=== PATIENT | female | born 1945 ===

== ENCOUNTER 2017-06-03 08:27 | Inpatient (IN) | payer MEDICARE, MEDICAID ==
[2017-06-03 08:47] VITALS: BMI 27.4
[2017-06-03] MEDS ORDERED: Propofol 10 mg/ml Inj (20 ML) ONE (10:13)
--- NOTE | 2017-06-03 10:14 | CP.SDSHP ---
Same Day Surgery H & P - History Proposed Procedure: EGD Pre-Op Diagnosis: SEE NOTES - Previous Medical/Surgical History Cardiac: Hypertension, ASHD/CAD Endocrine/Metabolic: Other Misc: Other Pain: 4.Moderate Pain Previous Surgical History: LARGE GASTRIC POLYP - Allergies Allergies: Allergies No Known Allergies Allergy (Verified 06/03/17 08:47) - Physical Exam General Appearance: N Vital Signs: Vital Signs 06/03/17 09:14 Temperature 97.6 F Pulse Rate 63 Respiratory 19 Rate Blood Pressure 152/89 H O2 Sat by Pulse 100 Oximetry Mental Status: Alert & Oriented x3 Neuro: WNL Heart: Other Lungs: WNL GI: Other - {Optional Preform as Required} Breast: WNL Abdomen: Other Rectal: Other Integument: WNL : WNL Ortho: WNL ENT: WNL - Impression Pt. Evaluated Today:Candidate for Anesthesia & Procedure: Yes - Date & Time Time: 10:14 Short Stay Discharge - Short Stay Discharge Admitting Diagnosis/Reason for Visit: COLON POLYP Disposition: HOME/ ROUTINE
[2017-06-03] MEDS ORDERED: Esmolol 100 mg/10ml Inj IV ONE (10:25)
[2017-06-03] MEDS ORDERED: Pantoprazole 40 mg EC Tab PO ONE (10:50)
--- NOTE | 2017-06-03 12:06 | CP.PCM.PN ---
Subjective - Date & Time of Evaluation Date of Evaluation: 06/03/17 Time of Evaluation: 12:00 - Subjective Subjective: Progress note. Service for Dr. Jean This is a 71 yo female with past medical hx of IBS, GERD, HLD, TIA, HTN presenting s/p endoscopy. Patient only speaks Croatian, is from [facility], and history was taken from pt's son who was translating. Pt reports that roughly 2 months ago she had a colonoscopy which showed an ulcer. Endoscopy was done at the same time which showed a gastric polyp. Repeat endoscopy was done today and biopsy was taken of gastric polyp. Hiatal hernia noted as well along with normal duodenum. Pt denies any current symptoms and denies procedures were done for any symptomatic reason. She denies fevers, chills, vomiting, diarrhea, chest pain, shortness of breath, melena, reflux symptoms. PMH: IBS, GERD, TIA, HTN, HLD PSH: tonsillectomy, cataracts Allergies: NKDA FH: Non contributory Home meds: lipitor, plavix, omeprazole, ramipril, bentyl, lubiprostone, cipro ( recently finished) Social hx: Former smoker. Quit 4 yrs ago. Smoked for over 50 years. Social drinker. Lives with son, daughter and sister in [place]. Born in [place] Objective - Vital Signs/Intake and Output Vital Signs (last 24 hours): Temp Pulse Resp BP Pulse Ox 97.3 F L 52 L 9 L 150/70 100 06/03/17 11:05 06/03/17 11:05 06/03/17 11:05 06/03/17 11:05 06/03/17 11:05 Intake and Output: 06/03/17 06/03/17 06:59 18:59 Intake Total 200 Balance 200 - Medications Medications: Current Medications Dicyclomine HCl (Bentyl) 20 mg PO BID PRN PRN Reason: Irritable bowel symptoms Home Med (Atorvastatin [Lipitor]) 20 mg PO DAILY [facility] Home Med (Omeprazole [Omeprazole]) 40 mg PO DAILY [facility] Home Med (Ramipril [Altace]) 5 mg PO DAILY [facility] - Constitutional Appears: Non-toxic, No Acute Distress - Head Exam Head Exam: ATRAUMATIC, NORMAL INSPECTION, NORMOCEPHALIC - Eye Exam Eye Exam: EOMI - ENT Exam ENT Exam: Mucous Membranes Moist - Neck Exam Neck Exam: Full ROM, Normal Inspection - Respiratory Exam Respiratory Exam: NORMAL BREATHING PATTERN. absent: Respiratory Distress - Cardiovascular Exam Cardiovascular Exam: +S1, +S2 - GI/Abdominal Exam GI & Abdominal Exam: Soft, Normal Bowel Sounds. absent: Tenderness - Extremities Exam Extremities Exam: Full ROM, Normal Inspection - Neurological Exam Neurological Exam: Alert, Awake, Oriented x3 - Psychiatric Exam Psychiatric exam: Normal Affect, Normal Mood - Skin Skin Exam: Dry, Intact, Normal Color, Warm Assessment and Plan - Assessment and Plan (Free Text) Assessment: This is a 71 yo female with pmh of IBS, HTN, HLD, GERD presenting s/p endosocopy 1. Gastric polyp -GI consulted. recs appreciated -s/p endoscopy -full liquid diet for lunch. advance as tolerated. -biopsy pending -pt will need repeat endo in 10 wks -will order ct scan of abdomen to evaluate for obstruction 2. Hiatal hernia -sx consult. recs appreciated. 3. Hx of HLD -will resume home lipitor 4. hx of HTN -will resume home ramipril 5. Hx of GERD -will resume home omeprazole 6. hx of TIA -will hold home plavix for now 7. hx of IBS -will resume home bentyl as needed 8. GI/DVT ppx -omeprazole daily -SCDs discussed with Dr. Jean
[2017-06-03] MEDS ORDERED: Pneumococcal 23-Valent Vaccine IM ONE (14:24)
[2017-06-03] MEDS ORDERED: Pantoprazole 40 mg EC Tab PO SCH (15:19)
--- NOTE | 2017-06-03 15:51 | CP.PCM.CON ---
History of Present Illness - History of Present Illness History of Present Illness: : 71 yo F who is being seen now s/p endoscopy with Dr. Grey. Pt states she got a colonoscopy in 2016, after which she was directed to get an EGD. Today during EGD pt was found to have a gastric polyp and surgery was consulted for this. Currently pt is asymptomatic. She denies any n/v, fatigue, change in appetite, weight-loss, cp/palpitation/sob fever/chills, hematochezia, headache, weakness, numbness or tingling. Pt denies abdominal pain, pain at night, pain before/after eating. PMHx: hyperlipidemia, HTN, TIA, GERD, IBS, hiatal hernia PShx: shoulder, tonsilectomy, glaucoma. Medication: lipitor, plavix (Held since 05/29), omeprazole, ramipril, bentyl, lubiprostone NKDA Social: lives with her brother in the [place]. Is visiting son/ daughter on vacation in -planned on leaving end of Apr. Tobacco: quit 4 yrs ago. 50 yrs x 1ppd. Alcohol: "light social drinker." 2 beers every 2 weeks. Recreational drugs: denies. Review of Systems - Constitutional Constitutional: Weight Gain. absent: Anorexia, Chills, Daytime Sleepiness, Fatigue, Fever, Headache, Lethargy, Night Sweats, Weight Loss, Weakness - Cardiovascular Cardiovascular: absent: Chest Pain, Dyspnea, Palpitations - Respiratory Respiratory: absent: Dyspnea - Gastrointestinal Gastrointestinal: absent: Abdominal Pain, Change in Bowel Habits, Change in Stool Character, Constipation, Diarrhea, Hematochezia, Melena - Musculoskeletal Musculoskeletal: absent: Myalgias, Numbness, Tingling - Neurological Neurological: absent: Numbness, Tingling Past Patient History - Past Medical History & Family History Past Medical History?: Yes - Past Social History Smoking Status: Former Smoker Alcohol: Social Home Situation {Lives}: With Family - CARDIAC Hx Cardiac Disorders: Yes Hx Heart Attack: Yes Hx Hypercholesterolemia: Yes Hx Hypertension: Yes Other/Comment: SON STATES PT HAD MILD STROKES OF HEART. LAST OCCURRANCE 3-4 YEARS AGO - PULMONARY Hx Respiratory Disorders: No - NEUROLOGICAL Hx Neurological Disorder: Yes Hx Transient Ischemic Attacks (TIA): Yes - HEENT Hx HEENT Problems: Yes Hx Cataracts: Yes (BIOL) - RENAL Hx Chronic Kidney Disease: No - ENDOCRINE/METABOLIC Hx Endocrine Disorders: No - HEMATOLOGICAL/ONCOLOGICAL Hx Blood Disorders: No - INTEGUMENTARY Hx Dermatological Problems: No - MUSCULOSKELETAL/RHEUMATOLOGICAL Hx Falls: No - GASTROINTESTINAL Hx Gastrointestinal Disorders: Yes Hx Gastroesophageal Reflux: Yes Hx Irritable Bowel: Yes Other/Comment: gastric ulcer - GENITOURINARY/GYNECOLOGICAL Hx Genitourinary Disorders: No - PSYCHIATRIC Hx Psychophysiologic Disorder: No Hx Substance Use: No - SURGICAL HISTORY Hx Surgeries: Yes Hx Cataract Extraction: Yes (BIOL) Hx Musculoskeletal Surgery: Yes (RIGHT SHOULDER) Hx Tonsillectomy: Yes - ANESTHESIA Hx Anesthesia: Yes Hx Anesthesia Reactions: No Hx Malignant Hyperthermia: No Has any member of the family had a problem w/ anesthesia?: No Meds Allergies/Adverse Reactions: Allergies Allergy/AdvReac Type Severity Reaction Status Date / Time No Known Allergies Allergy Verified 06/03/17 08:47 - Medications Medications: Current Medications Dicyclomine HCl (Bentyl) 20 mg PO BID PRN PRN Reason: Irritable bowel symptoms Enalapril Maleate (Vasotec) 10 mg PO DAILY [facility] Pantoprazole Sodium (Protonix Ec Tab) 40 mg PO DAILY [facility] Rosuvastatin Calcium (Crestor) 10 mg PO HS [facility] Physical Exam - Constitutional Appears: No Acute Distress - Head Exam Head Exam: ATRAUMATIC, NORMAL INSPECTION, NORMOCEPHALIC - Eye Exam Eye Exam: absent: EOMI Additional comments: sp CVA - Respiratory Exam Respiratory Exam: NORMAL BREATHING PATTERN. absent: Respiratory Distress - GI/Abdominal Exam GI & Abdominal Exam: Hernia. absent: Distended, Firm, Guarding, Rebound, Rigid , Tenderness Additional comments: Reducible umbilical hernia - Extremities Exam Extremities exam: Positive for: pedal edema. Negative for: calf tenderness Additional comments: +1 pitting edema b/l - Neurological Exam Neurological exam: Alert, Oriented x3 - Psychiatric Exam Psychiatric exam: Normal Affect, Normal Mood - Skin Skin Exam: Dry, Intact Results - Vital Signs Recent Vital Signs: Last Vital Signs Temp 98.3 F 06/03/17 13:45 Pulse 56 L 06/03/17 13:45 Resp 20 06/03/17 14:32 BP 170/71 H 06/03/17 13:45 Pulse Ox 100 06/03/17 13:45 Assessment & Plan - Assessment and Plan (Free Text) Assessment: 71yo F w/ 2cm gastric polyp on the greater curvature, s/p EGD -Plan for partial gastrectomy Monday 06/04 -NPO@midnight -Medical optimization pre-op -Continue to hold plavix -IVF -OR in AM DW Dr Albina Kramer PGY3
[2017-06-03 16:52] LABS: BASO % 0.9 % (0.0-2.0); EOS # 0.1 K/uL (0.0-0.7); EOS % 1.8 % (0.0-4.0); HEMATOCRIT 32.2 % (34.0-47.0); LYMPH # 2.2 K/uL (1.0-4.3); MEAN CELL VOLUME 85.8 fL (81.0-99.0); MEAN CORPUSCULAR HEMOGLOBIN 28.1 pg (27.0-31.0); MEAN CORPUSCULAR HGB CONC 32.7 g/dL (33.0-37.0); MEAN PLATELET VOLUME 8.9 fL (7.2-11.7); MONO # 0.5 K/uL (0.0-0.8); MONO % 8.6 % (0.0-10.0); RED CELL DISTRIBUTION WIDTH 14.4 % (11.5-14.5); WHITE BLOOD COUNT 5.2 K/uL (4.8-10.8)
[2017-06-03 17:04] LABS: ALB/GLOB RATIO 1.1 (1.0-2.1); ALKALINE PHOSPHATASE 102 U/L (38-126); ALT/SGPT 23 U/L (9-52); AST/SGOT 17 U/L (14-36); BILIRUBIN,TOTAL 0.3 mg/dL (0.2-1.3); BLOOD UREA NITROGEN 9 mg/dL (7-17); CALCIUM 9.1 mg/dl (8.6-10.4); CARBON DIOXIDE 26 mmol/L (22-30); CHLORIDE 105 mmol/L (98-107); CHOLESTEROL 120 mg/dL (0-199); GFR AFRICAN-AMERICAN > 60; GLUCOSE,RANDOM 102 mg/dL (65-105); PHOSPHOROUS 2.9 mg/dL (2.5-4.5); POTASSIUM 3.3 mmol/L (3.6-5.2); SODIUM 139 mmol/L (132-148); TOTAL PROTEIN 6.3 g/dL (6.3-8.3)
[2017-06-03] MEDS ORDERED: Iohexol 240 (50 ml) PO ONE (17:15)
[2017-06-03] MEDS ORDERED: Magnesium Citrate Oral SOL (300 ml) PO STA (20:48)
[2017-06-03] MEDS: Lactated Ringer's 1,000 ML IV SCH (21:20)
--- NOTE | 2017-06-03 22:02 | CT ---
EXAM: CT Abdomen and Pelvis Without Intravenous Contrast EXAM DATE/TIME: 06/03/2017 11:30 AM CLINICAL HISTORY: 71 years old, female; Condition or disease; Stomach condition; Gastritis; Additional info: Eval gastric polyp/obstruction TECHNIQUE: Axial computed tomography images of the abdomen and pelvis without intravenous contrast. All CT scans at this facility use one or more dose reduction techniques, viz.: automated exposure control; ma/kV adjustment per patient size (including targeted exams where dose is matched to indication; i.e. head); or iterative reconstruction technique. Coronal and sagittal reformatted images were created and reviewed. COMPARISON: There are no prior studies for comparison. FINDINGS: Artifacts: Motion artifact degrades image quality. Lower thorax: The heart is mildly enlarged. There are right hilar calcifications. There is atelectasis and scarring at the lung bases. There is a small hiatal hernia ABDOMEN: Liver: unremarkable Gallbladder and bile ducts: unremarkable Pancreas: Pancreas is mildly atrophic Spleen: unremarkable Adrenals: unremarkable Kidneys and ureters: unremarkable Stomach and bowel: Stomach is incompletely distended which accentuates the gastric wall. There is an apparent. Thickening in the region of the antrum. Rotation is normal. There is contrast in much of the small bowel. There is no obstruction. Terminal ileum is unremarkable. Appendix is unremarkable. Colon is incompletely distended which limits evaluation. Appendix: See stomach and bowel PELVIS: Bladder: unremarkable Reproductive: There are uterine calcifications. Adnexa are unremarkable. ABDOMEN and PELVIS: Intraperitoneal space: There is no free air.There is no free fluid. Bones/joints: There are degenerative changes in the osseus structures. Soft tissues: There is a fat-containing umbilical hernia. Vasculature: There are vascular calcifications. There are phleboliths. Lymph nodes: There is no pathologic adenopathy. IMPRESSION: No acute solid visceral abnormality; limited evaluation of the stomach due to under distention, no bowel obstruction Additional findings as described above.
[2017-06-04] MEDS: Lactated Ringer's 1,000 ML IV SCH ×4 (02:18→22:00)
[2017-06-04 07:24] LABS: BASO % 0.9 % (0.0-2.0); EOS # 0.1 K/uL (0.0-0.7); EOS % 1.9 % (0.0-4.0); HEMATOCRIT 33.3 % (34.0-47.0); LYMPH # 2.4 K/uL (1.0-4.3); LYMPH % 43.6 % (20.0-40.0); MEAN CELL VOLUME 85.8 fL (81.0-99.0); MEAN CORPUSCULAR HEMOGLOBIN 28.1 pg (27.0-31.0); MEAN CORPUSCULAR HGB CONC 32.8 g/dL (33.0-37.0); MONO # 0.5 K/uL (0.0-0.8); MONO % 8.6 % (0.0-10.0); RED CELL DISTRIBUTION WIDTH 14.7 % (11.5-14.5); WHITE BLOOD COUNT 5.5 K/uL (4.8-10.8)
[2017-06-04 07:29] LABS: INR 1.1
[2017-06-04 08:00] LABS: CHLORIDE 108 mmol/L (98-107); POTASSIUM 3.9 mmol/L (3.6-5.2); SODIUM 143 mmol/L (132-148)
[2017-06-04 08:02] LABS: ALB/GLOB RATIO 1.1 (1.0-2.1); AST/SGOT 19 U/L (14-36); BILIRUBIN,TOTAL 0.5 mg/dL (0.2-1.3); CARBON DIOXIDE 25 mmol/L (22-30); GFR AFRICAN-AMERICAN > 60
[2017-06-04 08:03] LABS: ALKALINE PHOSPHATASE 125 U/L (38-126); ALT/SGPT 23 U/L (9-52); BLOOD UREA NITROGEN 8 mg/dL (7-17); CALCIUM 9.1 mg/dl (8.6-10.4); GLUCOSE,RANDOM 97 mg/dL (65-105)
[2017-06-04] MEDS ORDERED: ceFAZolin IV 2 gm in Dextrose 1 GM/50 ML BAG IVPB ONE (09:40)
[2017-06-04] MEDS ORDERED: metroNIDAZOLE IV 500 mg/100 ml 500 MG/100 ML BAG ONE (09:40)
[2017-06-04] MEDS ORDERED: Pantoprazole 40 mg EC Tab PO SCH (10:00)
--- NOTE | 2017-06-04 11:22 | CP.PCM.PN ---
Subjective - Date & Time of Evaluation Date of Evaluation: 06/04/17 Time of Evaluation: 11:20 - Subjective Subjective: PROGRESS NOTE Service for Dr. Jean Pt seen and examined. No acute distress. No events overnight. Pt has no complaints. No fevers, chills, vomiting, diarrhea, cp, sob. Pt scheduled for partial gastrectomy today. Objective - Vital Signs/Intake and Output Vital Signs (last 24 hours): Temp Pulse Resp BP Pulse Ox 98.3 F 62 20 147/85 99 06/04/17 08:02 06/04/17 08:02 06/04/17 08:02 06/04/17 08:02 06/04/17 08:02 Intake and Output: 06/04/17 06/04/17 06:59 18:59 Intake Total 2200 Output Total 600 Balance 1600 - Medications Medications: Current Medications Dicyclomine HCl (Bentyl) 20 mg PO BID PRN PRN Reason: Irritable bowel symptoms Enalapril Maleate (Vasotec) 10 mg PO DAILY [facility] Lactated Ringer's (Lactated Ringer's) 1,000 mls @ 100 mls/hr IV .Q10H [facility] Last Admin: 06/04/17 05:22 Dose: 100 mls/hr Pantoprazole Sodium (Protonix Ec Tab) 40 mg PO DAILY [facility] Rosuvastatin Calcium (Crestor) 10 mg PO HS [facility] Last Admin: 06/03/17 21:20 Dose: 10 mg - Labs Labs: 06/04/17 07:15 06/04/17 07:15 PT 12.5 SECONDS (9.7-12.2) H 06/04/17 07:15 INR 1.1 06/04/17 07:15 APTT 33 SECONDS (21-34) 06/04/17 07:15 - Constitutional Appears: Non-toxic, No Acute Distress - Head Exam Head Exam: ATRAUMATIC, NORMAL INSPECTION, NORMOCEPHALIC - Eye Exam Eye Exam: EOMI - ENT Exam ENT Exam: Mucous Membranes Moist - Neck Exam Neck Exam: Full ROM, Normal Inspection - Respiratory Exam Respiratory Exam: NORMAL BREATHING PATTERN. absent: Respiratory Distress - Cardiovascular Exam Cardiovascular Exam: +S1, +S2 - GI/Abdominal Exam GI & Abdominal Exam: Soft, Normal Bowel Sounds. absent: Tenderness - Extremities Exam Extremities Exam: Full ROM, Normal Inspection - Back Exam Back Exam: NORMAL INSPECTION - Neurological Exam Neurological Exam: Alert, Awake, Oriented x3 - Psychiatric Exam Psychiatric exam: Normal Affect, Normal Mood - Skin Skin Exam: Dry, Intact, Normal Color, Warm Assessment and Plan - Assessment and Plan (Free Text) Assessment: This is a 71 yo female with pmh of IBS, HTN, HLD, GERD presenting s/p endosocopy 1. Gastric polyp -GI consulted. recs appreciated -s/p endoscopy -pt NPO for sx -biopsy pending -pt will need repeat endo in 10 wks -pt to undergo partial gastrectomy today with Dr. Montemayor. 2. Hiatal hernia -sx consult. recs appreciated. 3. Hx of HLD -will resume home lipitor 4. hx of HTN -will resume home ramipril 5. Hx of GERD -will resume home omeprazole 6. hx of TIA -will hold home plavix for now 7. hx of IBS -will resume home bentyl as needed 8. GI/DVT ppx -omeprazole daily -SCDs discussed with Dr. Jean
[2017-06-04] MEDS ORDERED: Lactated Ringer's 1,000 ML IV ONE ×4 (12:45→15:45)
[2017-06-04] MEDS ORDERED: Atropine 0.4 mg/ml Inj (1 mL) ONE (12:47)
[2017-06-04] MEDS ORDERED: Phenylephrine 10 mg/ml Inj ONE (12:47)
[2017-06-04] MEDS ORDERED: ePHEDrine 50 mg/ml Inj ONE (12:47)
[2017-06-04] MEDS ORDERED: Propofol 10 mg/ml Inj (20 ML) ONE (12:47)
[2017-06-04] MEDS ORDERED: Midazolam 2 MG/2 ML VIAL ONE (12:47)
[2017-06-04] MEDS ORDERED: Rocuronium 10 mg/ml (5 ml) ONE (12:47)
[2017-06-04] MEDS ORDERED: Succinylcholine Chloride 20 mg/ml Syr (5 ml) IV ONE (12:47)
[2017-06-04] MEDS ORDERED: Esmolol 100 mg/10ml Inj IV ONE (13:23)
[2017-06-04] MEDS ORDERED: Labetalol 25mg/5ml Syringe ONE (13:44)
[2017-06-04] MEDS ORDERED: Sodium Chloride 0.9% 500 ML IV ONE (13:45)
[2017-06-04] MEDS ORDERED: Neostigmine Methylsulfate 3mg/3ml Syringe IV ONE (14:28)
[2017-06-04] MEDS ORDERED: Morphine 4 MG/ML VIAL ONE (14:31)
--- NOTE | 2017-06-04 15:19 | PCM.SURG1 ---
Surgeon's Initial Post Op Note - Surgeon's Notes Surgeon: Dr. Montemayor Filler Shaker: [place] PGY3, Quintin PGY2 Type of Anesthesia: General Endo Pre-Operative Diagnosis: Gastric polyp Operative Findings: 1x1cm gastric polyp Post-Operative Diagnosis: gastric polyp Operation Performed: partial gastrectomy, gastrojejunostomy , jejunojejunostomy Specimen/Specimens Removed: distal stomach Estimated Blood Loss: EBL {In ML}: 50 Blood Products Given: N/A Drains Used: Matias Post-Op Condition: Fair Date of Surgery/Procedure: 06/04/17 Time of Surgery/Procedure: 15:19
[2017-06-04] MEDS: HYDROmorphone 0.5 mg/0.5 ml ISec IVP PRN ×3 (17:16→23:46)
--- NOTE | 2017-06-04 17:23 | CP.PCM.CON ---
<Eduardo Mike - Last Filed: 06/04/17 17:33> History of Present Illness - History of Present Illness History of Present Illness: 71 yo F who is being seen now s/p endoscopy with Dr. Grey. Pt states she got a colonoscopy in 2016, after which she was directed to get an EGD. Today during EGD pt was found to have a gastric polyp and surgery was consulted for this. Currently pt is asymptomatic. She denies any n/v, fatigue, change in appetite, weight-loss, cp/palpitation/sob fever/chills, hematochezia, headache, weakness, numbness or tingling. Pt denies abdominal pain, pain at night, pain before/after eating. PMHx: hyperlipidemia, HTN, TIA, GERD, IBS, hiatal hernia PShx: shoulder, tonsilectomy, glaucoma. Medication: lipitor, plavix (Held since 05/29), omeprazole, ramipril, bentyl, lubiprostone Allergies: NKDA Social: lives with her brother in the [place]. Is visiting son/ daughter on vacation in -planned on leaving end of Apr. Tobacco: quit 4 yrs ago. 50 yrs x 1ppd. Alcohol: "light social drinker." 2 beers every 2 weeks. Recreational drugs: denies. Review of Systems - Constitutional Constitutional: Weight Gain. absent: Chills, Fever - Cardiovascular Cardiovascular: absent: Chest Pain - Respiratory Respiratory: absent: Cough, Dyspnea, Hemoptysis - Gastrointestinal Gastrointestinal: absent: Abdominal Pain, Constipation, Diarrhea - Genitourinary Genitourinary: absent: Dysuria Past Patient History - Past Medical History & Family History Past Medical History?: Yes - Past Social History Smoking Status: Former Smoker Alcohol: Social Home Situation {Lives}: With Family - CARDIAC Hx Cardiac Disorders: Yes Hx Heart Attack: Yes Hx Hypercholesterolemia: Yes Hx Hypertension: Yes Other/Comment: SON STATES PT HAD MILD STROKES OF HEART. LAST OCCURRANCE 3-4 YEARS AGO - PULMONARY Hx Respiratory Disorders: No - NEUROLOGICAL Hx Neurological Disorder: Yes Hx Transient Ischemic Attacks (TIA): Yes - HEENT Hx HEENT Problems: Yes Hx Cataracts: Yes (BIOL) - RENAL Hx Chronic Kidney Disease: No - ENDOCRINE/METABOLIC Hx Endocrine Disorders: No - HEMATOLOGICAL/ONCOLOGICAL Hx Blood Disorders: No - INTEGUMENTARY Hx Dermatological Problems: No - MUSCULOSKELETAL/RHEUMATOLOGICAL Hx Falls: No - GASTROINTESTINAL Hx Gastrointestinal Disorders: Yes Hx Gastroesophageal Reflux: Yes Hx Irritable Bowel: Yes Other/Comment: gastric ulcer - GENITOURINARY/GYNECOLOGICAL Hx Genitourinary Disorders: No - PSYCHIATRIC Hx Psychophysiologic Disorder: No Hx Substance Use: No - SURGICAL HISTORY Hx Surgeries: Yes Hx Cataract Extraction: Yes (BIOL) Hx Musculoskeletal Surgery: Yes (RIGHT SHOULDER) Hx Tonsillectomy: Yes - ANESTHESIA Hx Anesthesia: Yes Hx Anesthesia Reactions: No Hx Malignant Hyperthermia: No Has any member of the family had a problem w/ anesthesia?: No Meds Allergies/Adverse Reactions: Allergies Allergy/AdvReac Type Severity Reaction Status Date / Time No Known Allergies Allergy Verified 06/03/17 08:47 - Medications Medications: Current Medications Dicyclomine HCl (Bentyl) 20 mg PO BID PRN PRN Reason: Irritable bowel symptoms Enalapril Maleate (Vasotec) 10 mg PO DAILY [facility] Heparin Sodium (Porcine) (Heparin) 5,000 units SC Q12 [facility] Hydromorphone HCl (Dilaudid) 0.5 mg IVP Q3H PRN PRN Reason: Pain, moderate (4-7) Last Admin: 06/04/17 17:16 Dose: 0.5 mg Lactated Ringer's (Lactated Ringer's) 1,000 mls @ 100 mls/hr IV .Q10H [facility] Last Admin: 06/04/17 05:22 Dose: 100 mls/hr Cefazolin Sodium 1,000 mg/ (Sodium Chloride) 100 mls @ 100 mls/hr IVPB Q8H [facility] Stop: 06/06/17 18:01 Metronidazole (Flagyl) 500 mg in 100 mls @ 100 mls/hr IVPB Q8 [facility] Stop: 06/06/17 22:01 Morphine Sulfate (Morphine) 1 mg IVP Q10M PRN PRN Reason: Pain, severe (8-10) Stop: 06/04/17 17:28 Last Admin: 06/04/17 16:06 Dose: 1 mg Pantoprazole Sodium (Protonix Ec Tab) 40 mg PO DAILY [facility] Pantoprazole Sodium (Protonix Inj) 40 mg IVP DAILY [facility] Rosuvastatin Calcium (Crestor) 10 mg PO HS [facility] Last Admin: 06/03/17 21:20 Dose: 10 mg Physical Exam - Head Exam Head Exam: ATRAUMATIC, NORMAL INSPECTION, NORMOCEPHALIC - Eye Exam Eye Exam: absent: EOMI Additional comments: s/p CVA - ENT Exam ENT Exam: Mucous Membranes Moist - Neck Exam Neck exam: Positive for: Normal Inspection - Respiratory Exam Respiratory Exam: Clear to Auscultation Bilateral. absent: Rales, Rhonchi, Wheezes - Cardiovascular Exam Cardiovascular Exam: REGULAR RHYTHM, +S1, +S2. absent: Systolic Murmur - GI/Abdominal Exam GI & Abdominal Exam: Hernia, Normal Bowel Sounds, Soft Additional comments: Reducible umbilical hernia - Rectal Exam Rectal Exam: Deferred - Extremities Exam Extremities exam: Positive for: pedal edema. Negative for: calf tenderness Additional comments: +1 pitting edema b/l - Neurological Exam Neurological exam: Alert, Oriented x3 - Psychiatric Exam Psychiatric exam: Normal Affect, Normal Mood - Skin Skin Exam: Dry, Intact, Normal Color, Warm Results - Vital Signs Recent Vital Signs: Last Vital Signs Temp 97.7 F 06/04/17 16:30 Pulse 64 06/04/17 17:00 Resp 13 06/04/17 17:00 BP 93/56 L 06/04/17 16:40 Pulse Ox 100 06/04/17 17:00 - Labs Result Diagrams: 06/04/17 07:15 06/04/17 07:15 Labs: Laboratory Results - last 24 hr 06/04/17 06/04/17 06/04/17 07:15 07:15 07:15 WBC 5.5 RBC 3.88 Hgb 10.9 L Hct 33.3 L MCV 85.8 MCH 28.1 MCHC 32.8 L RDW 14.7 H Plt Count 315 MPV 9.0 Neut % (Auto) 45.0 L Lymph % (Auto) 43.6 H [place] % (Auto) 8.6 Eos % (Auto) 1.9 Baso % (Auto) 0.9 Neut # 2.5 Lymph # 2.4 [place] # 0.5 Eos # 0.1 Baso # 0.0 PT 12.5 H INR 1.1 APTT 33 Sodium 143 Potassium 3.9 Chloride 108 H Carbon Dioxide 25 Anion Gap 14 BUN 8 Creatinine 0.8 Est GFR ( Amer) > 60 Est GFR (Non-Af Amer) > 60 Random Glucose 97 Calcium 9.1 Total Bilirubin 0.5 AST 19 ALT 23 Alkaline Phosphatase 125 Total Protein 7.0 Albumin 3.6 Globulin 3.4 Albumin/Globulin Ratio 1.1 Blood Type Antibody Screen 06/04/17 07:15 WBC RBC Hgb Hct MCV MCH MCHC RDW Plt Count MPV Neut % (Auto) Lymph % (Auto) [place] % (Auto) Eos % (Auto) Baso % (Auto) Neut # Lymph # [place] # Eos # Baso # PT INR APTT Sodium Potassium Chloride Carbon Dioxide Anion Gap BUN Creatinine Est GFR ( Amer) Est GFR (Non-Af Amer) Random Glucose Calcium Total Bilirubin AST ALT Alkaline Phosphatase Total Protein Albumin Globulin Albumin/Globulin Ratio Blood Type O POSITIVE Antibody Screen Negative Assessment & Plan - Assessment and Plan (Free Text) Assessment: 71 yo F with PMHx of s/p partial gastrectomy now in ICU for monitoring. GI: s/p partial gastrectomy - dilaudid 0.5mg ivp q3 prn for pain - continue cefazolin and metronidazole - lactated ringers 100 cc/hr CV: hypotensive - hold home med enalapril - lactated ringers 100 cc/hr Prophylaxis: - DVT: heparin 5000u sc q12, SCDs - GI: protonix 40mg iv daily - advance diet as tolerated Other organ systems with no active disease <Tom Baumann - Last Filed: 06/04/17 18:54> Meds - Medications Medications: Current Medications Dicyclomine HCl (Bentyl) 20 mg PO BID PRN PRN Reason: Irritable bowel symptoms Heparin Sodium (Porcine) (Heparin) 5,000 units SC Q12 [facility] Hydromorphone HCl (Dilaudid) 0.5 mg IVP Q3H PRN PRN Reason: Pain, moderate (4-7) Last Admin: 06/04/17 17:16 Dose: 0.5 mg Lactated Ringer's (Lactated Ringer's) 1,000 mls @ 100 mls/hr IV .Q10H [facility] Last Admin: 06/04/17 18:17 Dose: Not Given Cefazolin Sodium 1,000 mg/ (Sodium Chloride) 100 mls @ 100 mls/hr IVPB Q8H [facility] Stop: 06/06/17 18:01 Metronidazole (Flagyl) 500 mg in 100 mls @ 100 mls/hr IVPB Q8 [facility] Stop: 06/06/17 22:01 Sodium Chloride (Sodium Chloride 0.9%) 1,000 mls @ 1,000 mls/hr IV .Q1H [facility] Stop: 06/04/17 19:13 Last Admin: 06/04/17 18:23 Dose: 1,000 mls/hr Pantoprazole Sodium (Protonix Inj) 40 mg IVP DAILY [facility] Rosuvastatin Calcium (Crestor) 10 mg PO HS [facility] Last Admin: 06/03/17 21:20 Dose: 10 mg Results - Vital Signs Recent Vital Signs: Last Vital Signs Temp 97.7 F 06/04/17 17:00 Pulse 62 06/04/17 18:20 Resp 12 06/04/17 18:20 BP 100/61 06/04/17 17:36 Pulse Ox 100 06/04/17 18:20 - Labs Result Diagrams: 06/04/17 07:15 06/04/17 07:15 Labs: Laboratory Results - last 24 hr 06/04/17 06/04/17 06/04/17 07:15 07:15 07:15 WBC 5.5 RBC 3.88 Hgb 10.9 L Hct 33.3 L MCV 85.8 MCH 28.1 MCHC 32.8 L RDW 14.7 H Plt Count 315 MPV 9.0 Neut % (Auto) 45.0 L Lymph % (Auto) 43.6 H [place] % (Auto) 8.6 Eos % (Auto) 1.9 Baso % (Auto) 0.9 Neut # 2.5 Lymph # 2.4 [place] # 0.5 Eos # 0.1 Baso # 0.0 PT 12.5 H INR 1.1 APTT 33 Sodium 143 Potassium 3.9 Chloride 108 H Carbon Dioxide 25 Anion Gap 14 BUN 8 Creatinine 0.8 Est GFR ( Amer) > 60 Est GFR (Non-Af Amer) > 60 Random Glucose 97 Calcium 9.1 Total Bilirubin 0.5 AST 19 ALT 23 Alkaline Phosphatase 125 Total Protein 7.0 Albumin 3.6 Globulin 3.4 Albumin/Globulin Ratio 1.1 Blood Type Antibody Screen 06/04/17 07:15 WBC RBC Hgb Hct MCV MCH MCHC RDW Plt Count MPV Neut % (Auto) Lymph % (Auto) [place] % (Auto) Eos % (Auto) Baso % (Auto) Neut # Lymph # [place] # Eos # Baso # PT INR APTT Sodium Potassium Chloride Carbon Dioxide Anion Gap BUN Creatinine Est GFR ( Amer) Est GFR (Non-Af Amer) Random Glucose Calcium Total Bilirubin AST ALT Alkaline Phosphatase Total Protein Albumin Globulin Albumin/Globulin Ratio Blood Type O POSITIVE Antibody Screen Negative Attending/Attestation - Attestation I have personally seen and examined this patient.: Yes I have fully participated in the care of the patient.: Yes I have reviewed all pertinent clinical information: Yes Notes (Text): 06/04/17 18:54 Patient seen and examined 71 yo F s/p partial gastrectomy ICU monitoring overnight Monitor intake and output IV fluids Pain medication as needed Follow-up lites and CBC
[2017-06-04] MEDS ORDERED: Sodium Chloride 0.9% 1,000 ML IV ONE (18:14)
--- NOTE | 2017-06-04 20:30 | PN ---
DATE: LOCATION: ICU. SUBJECTIVE: This is a 71-year-old female, post surgical removal of gastric polyp done today by Dr. Montemayor and post upper endoscopy done yesterday by myself, seen in the intensive care unit in the presence of her family member as well as the staff in the floor. The entire chart is reviewed including but not limited to the most recent lab and radiology study results, current and the previous medication list, current and the previous medical events. Today labs showed hemoglobin of 10.9, hematocrit 33.3, with normal platelet count, mildly elevated PT to 12.5 with normal the rest of the SMA-18. PHYSICAL EXAMINATION: GENERAL: A 71-year-old female. VITAL SIGNS: Afebrile with pulse of 68, respiratory rate 20 to 22 with blood pressure 96/54. HEENT: Showed pale dry oral mucous membranes. Nonicteric sclerae. NG tube is in place. LUNGS: Few scattered mild crepitation, decreased air entry at bases bilaterally. HEART: Positive S1 and S2. ABDOMEN: Clean dressing post surgically. Bowel sounds are negative for now. No mass or organomegaly. EXTREMITIES: No significant edema, clubbing or cyanosis. NEUROLOGIC: No reported neurological deficits, sensory or motor. LABORATORY DATA: Tests to be mentioned, the patient had abdominal and the pelvic CAT scan post my upper endoscopy. Report is seen. Case discussed with Dr. Montemayor at length before and after the procedure. The patient is post partial gastrectomy with gastrojejunostomy as per the official report. Pathology report is still pending. IMPRESSION: 1. Gastric polypoid mass lesion. 2. Anemia, most likely secondary to above. 3. Known history of hypertension, hyperlipidemia, transient ischemic attack with irritable bowel syndrome and status post tonsillectomy by history. SUGGESTION: 1. Agree with your plan. 2. Peripheral hyperalimentation. 3. Proton pump inhibitor. 4. IV antibiotics. 5. Further recommendations to follow. 6. Followup on pathology report is recommended. Thank you for letting me participate in your patient's case management. Yamini Batres MD cc: Yamini Batres MD
[2017-06-04] MEDS: metroNIDAZOLE IV 500 mg/100 ml 500 MG/100 ML BAG IVPB SCH (21:39)
[2017-06-05] MEDS: Lactated Ringer's 1,000 ML IV SCH ×2 (04:30→08:04)
[2017-06-05] MEDS: HYDROmorphone 0.5 mg/0.5 ml ISec IVP PRN ×4 (04:30→22:59)
[2017-06-05] MEDS: metroNIDAZOLE IV 500 mg/100 ml 500 MG/100 ML BAG IVPB SCH ×3 (05:00→21:17)
--- NOTE | 2017-06-05 05:28 | OP ---
PROCEDURE DATE: 06/04/2017 PREOPERATIVE DIAGNOSIS: Gastric polyp, not amenable to endoscopic resection. PROCEDURE CARRIED OUT: Partial gastrectomy with functional Deborah-en-Y reconstruction with a gastric jejunostomy and a jejunojejunostomy. SURGEON: Dr. Montemayor. SENIOR ARCHITECTURAL DESIGNER: Dr. Watson and Dr. Ribeiro. ANESTHESIA ADMINISTERED BY: Dr. Ugarte. INDICATIONS: The patient is an older middle-aged woman, found to have a gastric polyp which was not amenable for gastric resection. OPERATIVE FINDINGS: There is no evidence of intraabdominal metastasis, there is no evidences of metastasis, etc. There was a large polyp located in the antrum of the stomach on the greater curvature. The rest of the intraoperative findings is unremarkable. The partial gastrectomy, approximately 60% of the stomach was removed and a functional Deborah-en-Y reconstruction was carried out bringing a gastric jejunostomy loop up in an anterior retrocolic fashion and then performing a jejunojejunostomy below this. The nasogastric tube was inserted into the efferent loop through the anastomosis. After this had been done and the anastomosis carried out, we checked for hemostasis which was very carefully maintained. We then closed the abdomen with running suture of 0 PDS, put a drain in the subhepatic space on the right side and closed the abdomen with semaj and clips. Blood loss for procedure was less than 200 mL. Afshin Montemayor Jr., MD cc: Dr. Jean, Erik Arevalo MD,
[2017-06-05 05:44] LABS: BASO % 0.2 % (0.0-2.0); HEMATOCRIT 32.6 % (34.0-47.0); LYMPH % 7.6 % (20.0-40.0); MEAN CORPUSCULAR HEMOGLOBIN 27.2 pg (27.0-31.0); MEAN CORPUSCULAR HGB CONC 31.2 g/dL (33.0-37.0); MEAN PLATELET VOLUME 9.6 fL (7.2-11.7); MONO # 0.6 K/uL (0.0-0.8); MONO % 4.6 % (0.0-10.0); PLATELET COUNT 307 K/uL (130-400); RED CELL DISTRIBUTION WIDTH 14.4 % (11.5-14.5); WHITE BLOOD COUNT 13.8 K/uL (4.8-10.8)
[2017-06-05 06:01] LABS: ALB/GLOB RATIO 0.9 (1.0-2.1); ALKALINE PHOSPHATASE 104 U/L (38-126); ALT/SGPT 24 U/L (9-52); AST/SGOT 23 U/L (14-36); BILIRUBIN,TOTAL 0.4 mg/dL (0.2-1.3); BLOOD UREA NITROGEN 7 mg/dL (7-17); CALCIUM 8.4 mg/dl (8.6-10.4); CARBON DIOXIDE 22 mmol/L (22-30); CHLORIDE 105 mmol/L (98-107); GFR AFRICAN-AMERICAN > 60; GLUCOSE,RANDOM 146 mg/dL (65-105); POTASSIUM 3.9 mmol/L (3.6-5.2); SODIUM 142 mmol/L (132-148); TOTAL PROTEIN 6.3 g/dL (6.3-8.3)
[2017-06-05] MEDS ORDERED: HYDROmorphone 0.5 mg/0.5 ml ISec IVP PRN (06:54)
[2017-06-05] MEDS ORDERED: HYDROmorphone 0.5 mg/0.5 ml ISec IVP SCH (06:55)
--- NOTE | 2017-06-05 08:05 | CP.PCM.PN ---
Subjective - Date & Time of Evaluation Date of Evaluation: 06/05/17 Time of Evaluation: 08:02 - Subjective Subjective: Gen Sx: Dr Montemayor PT S&E. POD#1 s/p ex-lap w/ partial gastrectomy w/ functional claudia-en-y anastomosis. Pt reports significant abdominal pain, relieved by Dilaudid but not last more than 2 hours. Additional dosing added. Denies N/V, F/C. Using incentive spirometer minimal, ~750cc. Matias 20cc serosanguinous NGT ~50 blood tinged >1400 urine output since surgery Objective - Vital Signs/Intake and Output Vital Signs (last 24 hours): Temp Pulse Resp BP Pulse Ox 98.4 F 64 20 147/69 100 06/05/17 04:00 06/05/17 07:00 06/05/17 07:00 06/05/17 06:36 06/05/17 07:00 Intake and Output: 06/05/17 06/05/17 06:59 18:59 Intake Total 2300 200 Output Total 615 115 Balance 1685 85 - Medications Medications: Current Medications Dicyclomine HCl (Bentyl) 20 mg PO BID PRN PRN Reason: Irritable bowel symptoms Heparin Sodium (Porcine) (Heparin) 5,000 units SC Q12 [facility] Hydromorphone HCl (Dilaudid) 0.5 mg IVP Q3H PRN PRN Reason: Pain, moderate (4-7) Last Admin: 06/05/17 04:30 Dose: 0.5 mg Hydromorphone HCl (Dilaudid) 0.5 mg IVP Q3H [facility] Lactated Ringer's (Lactated Ringer's) 1,000 mls @ 100 mls/hr IV .Q10H [facility] Last Admin: 06/05/17 04:30 Dose: 100 mls/hr Cefazolin Sodium 1,000 mg/ (Sodium Chloride) 100 mls @ 100 mls/hr IVPB Q8H [facility] Stop: 06/06/17 18:01 Last Admin: 06/05/17 01:00 Dose: 100 mls/hr Metronidazole (Flagyl) 500 mg in 100 mls @ 100 mls/hr IVPB Q8 [facility] Stop: 06/06/17 22:01 Last Admin: 06/05/17 05:00 Dose: 100 mls/hr Pantoprazole Sodium (Protonix Inj) 40 mg IVP DAILY [facility] Rosuvastatin Calcium (Crestor) 10 mg PO HS [facility] Last Admin: 06/04/17 21:36 Dose: Not Given - Labs Labs: 06/05/17 05:39 06/05/17 05:39 PT 12.5 SECONDS (9.7-12.2) H 06/04/17 07:15 INR 1.1 06/04/17 07:15 APTT 33 SECONDS (21-34) 06/04/17 07:15 - Constitutional Appears: Non-toxic, No Acute Distress - Respiratory Exam Respiratory Exam: absent: Accessory Muscle Use, Respiratory Distress - Cardiovascular Exam Cardiovascular Exam: REGULAR RHYTHM. absent: Tachycardia - GI/Abdominal Exam GI & Abdominal Exam: Soft, Tenderness (postoperative). absent: Distended, Firm Additional comments: dressing c/d/i - Extremities Exam Extremities Exam: absent: Pedal Edema - Neurological Exam Neurological Exam: Alert, Awake, Oriented x3 - Psychiatric Exam Psychiatric exam: Normal Affect, Normal Mood - Skin Skin Exam: Normal Color, Warm Assessment and Plan - Assessment and Plan (Free Text) Assessment: 71F POD#1 s/p partial gastrectomy for gastric polyp Plan: Maintain NGT to LIS Maintain harp until pain more adequately controlled will give dose of Ofirmev Will attempt OOB to chair after dosing continue incentive spirometer cont abx d/w Dr Albina Kramer, PGY3
--- NOTE | 2017-06-05 08:16 | CP.CCUPN ---
CCU Objective - Vital Signs / Intake & Output Vital Signs (Last 4 hours): Vital Signs Pulse Resp BP Pulse Ox 06/05/17 07:00 64 20 100 06/05/17 06:50 70 18 06/05/17 06:40 60 20 06/05/17 06:36 67 16 147/69 06/05/17 06:30 70 17 06/05/17 06:20 65 17 06/05/17 06:10 66 17 06/05/17 06:00 65 14 06/05/17 05:50 71 15 06/05/17 05:40 64 15 06/05/17 05:36 68 15 131/68 06/05/17 05:30 72 16 06/05/17 05:20 73 14 06/05/17 05:10 70 13 06/05/17 05:00 66 14 06/05/17 04:50 72 14 06/05/17 04:40 85 17 06/05/17 04:36 85 25 H 139/74 06/05/17 04:30 73 19 06/05/17 04:20 65 19 100 Intake and Output (Last 8hrs): Intake & Output 06/04/17 06/05/17 06/05/17 22:59 06:59 14:59 Intake Total 1600 800 200 Output Total 615 475 115 Balance 985 325 85 Intake: Intake, IV Amount 1600 800 200 Right Antecubital 1600 800 200 Oral 0 0 Output: Gastric Amount 10 20 0 Right Nares 10 20 0 Drainage 85 15 0 Medial Abdomen 30 15 0 Urine 520 440 115 Urethral (Farooq) 170 440 115 Other: # Bowel Movements 0 - Medications Active Medications: Active Medications Generic Name Dose Route Start Last Admin Trade Name Freq PRN Reason Stop Dose Admin Dicyclomine HCl 20 mg 06/03/17 11:55 Bentyl PO BID PRN Irritable bowel symptoms Heparin Sodium (Porcine) 5,000 units 06/05/17 10:00 Heparin SC Q12 [facility] Hydromorphone HCl 0.5 mg 06/04/17 15:20 06/05/17 04:30 Dilaudid IVP 0.5 mg Q3H PRN Administration Pain, moderate (4-7) Lactated Ringer's 1,000 mls @ 100 mls/hr 06/03/17 16:00 09/07/17 04:30 Lactated Ringer's IV 100 mls/hr .Q10H [facility] Administration Cefazolin Sodium 1,000 mg/ 100 mls @ 100 mls/hr 06/04/17 18:00 06/05/17 01:00 Sodium Chloride IVPB 06/06/17 18:01 100 mls/hr Q8H [facility] Administration Metronidazole 500 mg in 100 mls @ 100 mls/hr 06/04/17 22:00 06/05/17 05:00 Flagyl IVPB 06/06/17 22:01 100 mls/hr Q8 [facility] Administration Acetaminophen 100 mls @ 100 mls/hr 06/05/17 08:07 Ofirmev IV 06/05/17 09:06 ONCE ONE Pantoprazole Sodium 40 mg 06/05/17 10:00 Protonix Inj IVP DAILY [facility] Rosuvastatin Calcium 10 mg 06/03/17 22:00 06/04/17 21:36 Crestor PO Not Given HS [facility] - Patient Studies Lab Studies: Lab Studies 06/05/17 06/05/17 06/04/17 Range/Units 05:39 05:39 07:15 WBC 13.8 H D (4.8-10.8) K/uL RBC 3.75 L (3.80-5.20) Mil/uL Hgb 10.2 L (11.0-16.0) g/dL Hct 32.6 L (34.0-47.0) % MCV 87.0 (81.0-99.0) fL MCH 27.2 (27.0-31.0) pg MCHC 31.2 L (33.0-37.0) g/dL RDW 14.4 (11.5-14.5) % Plt Count 307 (130-400) K/uL MPV 9.6 (7.2-11.7) fL Neut % (Auto) 87.6 H (50.0-75.0) % Lymph % (Auto) 7.6 L (20.0-40.0) % [place] % (Auto) 4.6 (0.0-10.0) % Eos % (Auto) 0.0 (0.0-4.0) % Baso % (Auto) 0.2 (0.0-2.0) % Neut # 12.1 H (1.8-7.0) K/uL Lymph # 1.0 (1.0-4.3) K/uL [place] # 0.6 (0.0-0.8) K/uL Eos # 0.0 (0.0-0.7) K/uL Baso # 0.0 (0.0-0.2) K/uL Sodium 142 (132-148) mmol/L Potassium 3.9 (3.6-5.2) mmol/L Chloride 105 (98-107) mmol/L Carbon Dioxide 22 (22-30) mmol/L Anion Gap 19 (10-20) BUN 7 (7-17) mg/dL Creatinine 0.6 L (0.7-1.2) MG/DL Est GFR ( Amer) > 60 Est GFR (Non-Af Amer) > 60 Random Glucose 146 H (65-105) mg/dL Calcium 8.4 L (8.6-10.4) mg/dl Total Bilirubin 0.4 (0.2-1.3) mg/dL AST 23 (14-36) U/L ALT 24 (9-52) U/L Alkaline Phosphatase 104 (38-126) U/L Total Protein 6.3 (6.3-8.3) g/dL Albumin 3.0 L (3.5-5.0) g/dL Globulin 3.3 (2.2-3.9) gm/dL Albumin/Globulin Ratio 0.9 L (1.0-2.1) Blood Type O POSITIVE Antibody Screen Negative 06/04/17 Range/Units 07:15 WBC (4.8-10.8) K/uL RBC (3.80-5.20) Mil/uL Hgb (11.0-16.0) g/dL Hct (34.0-47.0) % MCV (81.0-99.0) fL MCH (27.0-31.0) pg MCHC (33.0-37.0) g/dL RDW (11.5-14.5) % Plt Count (130-400) K/uL MPV (7.2-11.7) fL Neut % (Auto) (50.0-75.0) % Lymph % (Auto) (20.0-40.0) % [place] % (Auto) (0.0-10.0) % Eos % (Auto) (0.0-4.0) % Baso % (Auto) (0.0-2.0) % Neut # (1.8-7.0) K/uL Lymph # (1.0-4.3) K/uL [place] # (0.0-0.8) K/uL Eos # (0.0-0.7) K/uL Baso # (0.0-0.2) K/uL Sodium 143 (132-148) mmol/L Potassium 3.9 (3.6-5.2) mmol/L Chloride 108 H (98-107) mmol/L Carbon Dioxide 25 (22-30) mmol/L Anion Gap 14 (10-20) BUN 8 (7-17) mg/dL Creatinine 0.8 (0.7-1.2) MG/DL Est GFR ( Amer) > 60 Est GFR (Non-Af Amer) > 60 Random Glucose 97 (65-105) mg/dL Calcium 9.1 (8.6-10.4) mg/dl Total Bilirubin 0.5 (0.2-1.3) mg/dL AST 19 (14-36) U/L ALT 23 (9-52) U/L Alkaline Phosphatase 125 (38-126) U/L Total Protein 7.0 (6.3-8.3) g/dL Albumin 3.6 (3.5-5.0) g/dL Globulin 3.4 (2.2-3.9) gm/dL Albumin/Globulin Ratio 1.1 (1.0-2.1) Blood Type Antibody Screen Laboratory Results - last 24 hr 06/04/17 06/04/17 06/05/17 07:15 07:15 05:39 WBC 13.8 H D RBC 3.75 L Hgb 10.2 L Hct 32.6 L MCV 87.0 MCH 27.2 MCHC 31.2 L RDW 14.4 Plt Count 307 MPV 9.6 Neut % (Auto) 87.6 H Lymph % (Auto) 7.6 L [place] % (Auto) 4.6 Eos % (Auto) 0.0 Baso % (Auto) 0.2 Neut # 12.1 H Lymph # 1.0 [place] # 0.6 Eos # 0.0 Baso # 0.0 Sodium 143 Potassium 3.9 Chloride 108 H Carbon Dioxide 25 Anion Gap 14 BUN 8 Creatinine 0.8 Est GFR ( Amer) > 60 Est GFR (Non-Af Amer) > 60 Random Glucose 97 Calcium 9.1 Total Bilirubin 0.5 AST 19 ALT 23 Alkaline Phosphatase 125 Total Protein 7.0 Albumin 3.6 Globulin 3.4 Albumin/Globulin Ratio 1.1 Blood Type O POSITIVE Antibody Screen Negative 06/05/17 05:39 WBC RBC Hgb Hct MCV MCH MCHC RDW Plt Count MPV Neut % (Auto) Lymph % (Auto) [place] % (Auto) Eos % (Auto) Baso % (Auto) Neut # Lymph # [place] # Eos # Baso # Sodium 142 Potassium 3.9 Chloride 105 Carbon Dioxide 22 Anion Gap 19 BUN 7 Creatinine 0.6 L Est GFR ( Amer) > 60 Est GFR (Non-Af Amer) > 60 Random Glucose 146 H Calcium 8.4 L Total Bilirubin 0.4 AST 23 ALT 24 Alkaline Phosphatase 104 Total Protein 6.3 Albumin 3.0 L Globulin 3.3 Albumin/Globulin Ratio 0.9 L Blood Type Antibody Screen Critical Care Progress Note - Nutrition Nutrition: Nutrition Category Date Time Status NPO Diet [DIET] Diets 06/04/17 Breakfast Active Assessment/Plan - Assessment and Plan (Free Text) Assessment: 71 yo F with PMHx of s/p partial gastrectomy now in ICU for monitoring. GI: s/p partial gastrectomy - dilaudid 0.5mg ivp q3 prn for pain - continue cefazolin and metronidazole - lactated ringers 100 cc/hr CV: hypotensive - hold home med enalapril - lactated ringers 100 cc/hr ID: wbc elevated, afebrile Prophylaxis: - DVT: heparin 5000u sc q12, SCDs - GI: protonix 40mg iv daily - advance diet as tolerated Other organ systems with no active disease
[2017-06-05 08:40] LABS: NEUTROPHIL 84 % (50-75); TOTAL CELLS COUNTED 100
[2017-06-05] MEDS ORDERED: Phenol Topical 1.4% Throat Spray (180 ml) MT PRN (13:30)
--- NOTE | 2017-06-05 17:53 | PN ---
LOCATION: ICU 9. SUBJECTIVE: This is 71-year-old female seen and examined today in the presence of her family as well as her sister in the intensive care unit, appears to be awake, alert, and oriented, with much less abdominal pain, NG tube is in place. No reported nausea or vomiting and no bowel movement. The entire chart is reviewed including, but not limited to the most recent lab and radiology study results, current and the previous medication list, current and the previous medical events. Case discussed with all the consultants in the case. LABORATORY DATA: Today's lab showed white blood cells of 13.8 with decreased hemoglobin to 10.2 and hematocrit 32.6, was normal platelet count and mildly elevated PT, with increased blood glucose level 146, low calcium 8.4, and low albumin 3.0. PHYSICAL EXAMINATION: GENERAL: A 71-year-old female. VITAL SIGNS: Afebrile with pulse of 76, respiratory rate 18 to 20 with blood pressure 134/66. HEENT: Showed pale dry oral mucous membranes. Nonicteric sclerae. LUNGS: Few scattered crepitation, decreased air entry at bases. HEART: Positive S1 and S2. ABDOMEN: Clean dressing. Bowel sounds are negative with mild generalized tenderness. EXTREMITIES: With right extremity edematous changes. No clubbing or cyanosis. NEUROLOGIC: No reported neurological deficits, sensory or motor. IMPRESSION: 1. Status post partial gastrectomy, with removal of large polypoid gastric lesion. Pathology report is still pending. 2. Exacerbation of peptic ulcer disease. 3. Anemia secondary to above. 4. Known history of hyperlipidemia, hypertension, transient ischemic attack, with known history of irritable bowel syndrome and is status post tonsillectomy. SUGGESTION: 1. Continue current management. 2. Peripheral hyperalimentation. 3. Continue current IV antibiotics. Yamini Batres MD
[2017-06-06] MEDS: Lactated Ringer's 1,000 ML IV SCH (05:19)
[2017-06-06] MEDS: metroNIDAZOLE IV 500 mg/100 ml 500 MG/100 ML BAG IVPB SCH ×3 (05:21→22:30)
[2017-06-06 06:28] LABS: BASO % 0.2 % (0.0-2.0); LYMPH # 1.2 K/uL (1.0-4.3); LYMPH % 10.6 % (20.0-40.0); MEAN CELL VOLUME 86.4 fL (81.0-99.0); MEAN CORPUSCULAR HEMOGLOBIN 27.6 pg (27.0-31.0); MONO # 0.7 K/uL (0.0-0.8); MONO % 6.4 % (0.0-10.0); NRBC % 0.1 % (0.0-2.0); RED CELL DISTRIBUTION WIDTH 14.8 % (11.5-14.5); WHITE BLOOD COUNT 11.2 K/uL (4.8-10.8)
[2017-06-06 06:38] LABS: CHLORIDE 106 mmol/L (98-107); POTASSIUM 3.5 mmol/L (3.6-5.2); SODIUM 138 mmol/L (132-148)
[2017-06-06 06:40] LABS: AST/SGOT 26 U/L (14-36); BILIRUBIN,TOTAL 0.5 mg/dL (0.2-1.3); CARBON DIOXIDE 21 mmol/L (22-30); GFR AFRICAN-AMERICAN > 60; TOTAL PROTEIN 6.5 g/dL (6.3-8.3)
[2017-06-06 06:41] LABS: ALKALINE PHOSPHATASE 97 U/L (38-126); ALT/SGPT 21 U/L (9-52); BLOOD UREA NITROGEN 7 mg/dL (7-17); CALCIUM 8.3 mg/dl (8.6-10.4); GLUCOSE,RANDOM 92 mg/dL (65-105)
--- NOTE | 2017-06-06 08:14 | RAD ---
HISTORY: rales COMPARISON: None available. TECHNIQUE: Chest, one view. FINDINGS: Nasogastric tube extends expected location of the stomach. LUNGS: No focal consolidation. Please note that chest x-ray has limited sensitivity for the detection of pulmonary masses. PLEURA: No significant pleural effusion identified. No definite pneumothorax . CARDIOVASCULAR: Borderline cardiomegaly. Ectatic aorta. OSSEOUS STRUCTURES: No acute osseous abnormality identified. VISUALIZED UPPER ABDOMEN: Unremarkable. OTHER FINDINGS: None. IMPRESSION: Nasogastric tube extends to the expected location of the stomach.
--- NOTE | 2017-06-06 08:22 | CP.PCM.PN ---
Subjective - Date & Time of Evaluation Date of Evaluation: 06/06/17 Time of Evaluation: 08:21 - Subjective Subjective: Gen Sx: Dr Montemayor Pt S&E. ERWINEO. Pain significantly improved. Voiding independently. Has been OOB to chair. Denies N/V, F/C. Matias 90cc/24hrs serosanguinous NGT with minimal output Objective - Vital Signs/Intake and Output Vital Signs (last 24 hours): Temp Pulse Resp BP Pulse Ox 98.8 F 79 20 169/80 H 98 06/06/17 07:30 06/06/17 07:36 06/06/17 07:36 06/06/17 07:36 06/06/17 07:36 Intake and Output: 06/06/17 06/06/17 06:59 18:59 Intake Total 1000 0 Output Total 1075 200 Balance -75 -200 - Medications Medications: Current Medications Dicyclomine HCl (Bentyl) 20 mg PO BID PRN PRN Reason: Irritable bowel symptoms Heparin Sodium (Porcine) (Heparin) 5,000 units SC Q12 [facility] Last Admin: 06/05/17 21:17 Dose: 5,000 units Hydromorphone HCl (Dilaudid) 0.5 mg IVP Q3H PRN PRN Reason: Pain, moderate (4-7) Last Admin: 06/05/17 22:59 Dose: 0.5 mg Lactated Ringer's (Lactated Ringer's) 1,000 mls @ 100 mls/hr IV .Q10H [facility] Last Admin: 06/06/17 05:19 Dose: Not Given Cefazolin Sodium 1,000 mg/ (Sodium Chloride) 100 mls @ 100 mls/hr IVPB Q8H [facility] Stop: 06/06/17 18:01 Last Admin: 06/06/17 03:12 Dose: 100 mls/hr Metronidazole (Flagyl) 500 mg in 100 mls @ 100 mls/hr IVPB Q8 [facility] Stop: 06/06/17 22:01 Last Admin: 06/06/17 05:21 Dose: 100 mls/hr Potassium Chloride (Potassium Chloride 20 Meq/100 Ml) 20 meq in 100 mls @ 50 mls/hr IVPB ONCE ONE Stop: 06/06/17 09:59 Pantoprazole Sodium (Protonix Inj) 40 mg IVP DAILY [facility] Last Admin: 06/05/17 09:03 Dose: 40 mg Phenol/Menthol (Phenaseptic 1.4% Throat [place]) 2 ml MT Q1H PRN PRN Reason: Sore Throat Last Admin: 06/05/17 16:45 Dose: 1 spr Rosuvastatin Calcium (Crestor) 10 mg PO HS [facility] Last Admin: 06/05/17 22:15 Dose: Not Given - Labs Labs: 06/06/17 06:20 06/06/17 06:20 PT 12.5 SECONDS (9.7-12.2) H 06/04/17 07:15 INR 1.1 06/04/17 07:15 APTT 33 SECONDS (21-34) 06/04/17 07:15 - Constitutional Appears: Non-toxic, No Acute Distress - ENT Exam ENT Exam: Normal Exam - Respiratory Exam Respiratory Exam: Rales (R > L), NORMAL BREATHING PATTERN. absent: Respiratory Distress - Cardiovascular Exam Cardiovascular Exam: REGULAR RHYTHM. absent: Tachycardia - GI/Abdominal Exam GI & Abdominal Exam: Soft, Tenderness (post-op). absent: Distended, Rigid - Extremities Exam Extremities Exam: absent: Pedal Edema - Neurological Exam Neurological Exam: Alert, Awake, Oriented x3 - Psychiatric Exam Psychiatric exam: Normal Affect, Normal Mood - Skin Skin Exam: Normal Color, Warm Assessment and Plan - Assessment and Plan (Free Text) Assessment: 71F POD#2 s/p partial gastrectomy w/ Deborah-En-Y reconstruction Plan: CXR due to rales - no fluid accumulation noted cont to encourage IS use and OOB leave NGT to LIS ok for transfer to med/surg floor - preferably 6T will d/w Dr Albina Kramer, PGY3
[2017-06-06] MEDS: Benzocaine/Menthol (Cepacol) Lozenge MT PRN (12:53)
--- NOTE | 2017-06-06 16:47 | PN ---
LOCATION: ICU 9. SUBJECTIVE: This is 71-year-old female, seen and examined on rounds with intermittent postsurgical abdominal pain, treated by Dilaudid. No reported nausea or vomiting or active bleeding. The entire is reviewed including but not limited to the most recent lab and radiology results, current and previous. MEDICATION LIST: Current and previous medical exams. The most recent chest x-ray report is seen. Today's labs showed leukocytosis of 11.2 with low hemoglobin of 10.6, hematocrit 33.0 with normal platelet count and low potassium 3.5, low CO2 content of 21, indicative of metabolic acidosis with low calcium 8.3 and low albumin 3.2. The patient has no evidence of active bleeding or chest pain. Official pathology report discussed with david Valle , in the case. PHYSICAL EXAMINATION: GENERAL: A 71-year-old female. VITAL SIGNS: Afebrile with pulse of 82, respiratory rate 20 to 22, blood pressure 162/78. HEENT: Shows pale and dry oral mucous membranes. Nonicteric sclerae. LUNGS: Few scattered crepitation. Decreased air entry at bases. HEART: Positive S1, S2. ABDOMEN: Covered with clean dressing with slight generalized tenderness. No mass or organomegaly. No rebound tenderness or guarding. EXTREMITIES: Without significant clubbing, cyanosis, or edema. NEUROLOGIC: No reported neurological deficits, sensory or motor. IMPRESSION: 1. Gastric polypoid lesion, removed surgically with partial gastrectomy and gastrojejunostomy. 2. Anemia secondary to above. 3. Peptic ulcer disease. 4. Known history of hypertension, hyperlipidemia, and transient ischemic attack before. 5. Known history of irritable bowel syndrome with status post tonsillectomy. SUGGESTION: 1. Continue current management. 2. Oncology/hematology consult. Yamini Batres MD
--- NOTE | 2017-06-06 19:06 | CARD ---
APPROVED REPORT EKG Measurement Heart [id number] ID [id number] <Conclusion> Sinus bradycardia Minimal voltage criteria for LVH, may be normal variant Nonspecific ST/T changes.
[2017-06-07] MEDS: Lactated Ringer's 1,000 ML IV SCH (04:28)
--- NOTE | 2017-06-07 09:40 | CP.PCM.PN ---
Subjective - Date & Time of Evaluation Date of Evaluation: 06/07/17 Time of Evaluation: 09:37 - Subjective Subjective: General Surgery - Dr. Montemayor Pt S&E. REDDY. PT transferred to floor from icu yesterday. She has been OOB to the chair and ambulated once yesterday with assistance. Her pain is well controlled. She denies any N/V, F/C, SOB/Cp. NGT in place to low conitnuous suction, 300cc drainage/24hrs. Pt denies any flatus or BM yet. Objective - Vital Signs/Intake and Output Vital Signs (last 24 hours): Temp Pulse Resp BP Pulse Ox 98.4 F 66 20 169/78 H 98 06/07/17 07:00 06/07/17 07:00 06/07/17 07:00 06/07/17 07:00 06/07/17 07:00 Intake and Output: 06/07/17 06/07/17 06:59 18:59 Intake Total 1000 800 Output Total 30 220 Balance 970 580 - Medications Medications: Current Medications Benzocaine/Menthol (Cepacol Sore Throat) 1 yohannes MT Q1 PRN PRN Reason: Sore Throat Last Admin: 06/06/17 12:53 Dose: 1 yohannes Dicyclomine HCl (Bentyl) 20 mg PO BID PRN PRN Reason: Irritable bowel symptoms Heparin Sodium (Porcine) (Heparin) 5,000 units SC Q12 [facility] Last Admin: 06/06/17 22:29 Dose: 5,000 units Hydromorphone HCl (Dilaudid) 0.5 mg IVP Q3H PRN PRN Reason: Pain, moderate (4-7) Last Admin: 06/05/17 22:59 Dose: 0.5 mg Pantoprazole Sodium (Protonix Inj) 40 mg IVP DAILY [facility] Last Admin: 06/06/17 10:03 Dose: 40 mg Rosuvastatin Calcium (Crestor) 10 mg PO HS [facility] Last Admin: 06/06/17 22:29 Dose: Not Given - Labs Labs: 06/06/17 06:20 06/06/17 06:20 PT 12.5 SECONDS (9.7-12.2) H 06/04/17 07:15 INR 1.1 06/04/17 07:15 APTT 33 SECONDS (21-34) 06/04/17 07:15 - Constitutional Appears: No Acute Distress - Head Exam Head Exam: ATRAUMATIC, NORMAL INSPECTION, NORMOCEPHALIC - Eye Exam Eye Exam: Normal appearance - Respiratory Exam Respiratory Exam: NORMAL BREATHING PATTERN. absent: Respiratory Distress - GI/Abdominal Exam GI & Abdominal Exam: Soft. absent: Distended, Guarding, Tenderness, Rebound Additional comments: serjio drain in RLQ with minimal serous drainage, 20cc/24hrs NGT in place w/ clear/gastric drainage - Neurological Exam Neurological Exam: Alert, Oriented x3 - Psychiatric Exam Psychiatric exam: Normal Affect, Normal Mood - Skin Skin Exam: Dry, Intact Assessment and Plan - Assessment and Plan (Free Text) Assessment: 71F POD#3 s/p partial gastrectomy w/ functional Deborah-en-y Plan: CXR clear, Encourage Incentive Spirometer Continue NGT to low intermittent suction Encourage OOB, Ambulate with assistance, Physical therapy Will clamp NGT and start clear liquids once passing flatus ALFREDO Watson PGY3
[2017-06-07 11:24] LABS: BASO % 0.5 % (0.0-2.0); EOS % 0.1 % (0.0-4.0); HEMATOCRIT 29.9 % (34.0-47.0); LYMPH # 1.2 K/uL (1.0-4.3); LYMPH % 14.1 % (20.0-40.0); MEAN CELL VOLUME 86.1 fL (81.0-99.0); MEAN CORPUSCULAR HEMOGLOBIN 28.1 pg (27.0-31.0); MEAN CORPUSCULAR HGB CONC 32.7 g/dL (33.0-37.0); MEAN PLATELET VOLUME 9.6 fL (7.2-11.7); MONO # 0.7 K/uL (0.0-0.8); MONO % 8.2 % (0.0-10.0); RED CELL DISTRIBUTION WIDTH 14.5 % (11.5-14.5); WHITE BLOOD COUNT 8.4 K/uL (4.8-10.8)
[2017-06-07 11:40] LABS: CHLORIDE 100 mmol/L (98-107)
[2017-06-07 11:41] LABS: POTASSIUM 3.1 mmol/L (3.6-5.2)
[2017-06-07 11:43] LABS: AST/SGOT 24 U/L (14-36); BILIRUBIN,TOTAL 0.4 mg/dL (0.2-1.3); BLOOD UREA NITROGEN 7 mg/dL (7-17); CARBON DIOXIDE 23 mmol/L (22-30); GFR AFRICAN-AMERICAN > 60; TOTAL PROTEIN 6.1 g/dL (6.3-8.3)
[2017-06-07 11:44] LABS: ALKALINE PHOSPHATASE 88 U/L (38-126); ALT/SGPT 23 U/L (9-52); CALCIUM 8.6 mg/dl (8.6-10.4); GLUCOSE,RANDOM 82 mg/dL (65-105)
[2017-06-07 11:46] LABS: SODIUM 135 mmol/L (132-148)
--- NOTE | 2017-06-07 16:30 | PN ---
DATE: LOCATION: 658, bed A. SUBJECTIVE: This is a 71-year-old female seen and examined in rounds today without significant clinical changes with family member at bedside. The patient did have mild intermittent abdominal pain post-surgically, but no reported active bleeding and the patient still has NG tube in place with brownish output and clean abdominal dressing. No bowel movement. No passing gas. The entire chart is reviewed including, but not limited to the most recent lab and radiology results, current and previous medication list, current and previous medical events and case discussed at length with the staff in the floor. Case also discussed with the family member. Today's labs showed normal white blood cells with hemoglobin of 9.8, hematocrit 29.9, with normal platelet count with low potassium 3.1 and low albumin 3.0 with low total protein 6.1. Most recent chest x-ray done yesterday, report is seen. PHYSICAL EXAMINATION: GENERAL: A 71-year-old female awake, alert, and oriented. VITAL SIGNS: Afebrile with pulse of 70, respiratory 20 to 22, blood pressure 162/76. HEENT: Shows pale and dry oral mucous membranes. Nonicteric sclerae. LUNGS: Few scattered rales with crepitation, decreased air entry at bases. HEART: Positive S1 and S2. ABDOMEN: Soft with mild generalized tenderness. No mass or organomegaly. No rebound tenderness or guarding, covered with clean dressing and NG tube is still in place, despite no nausea or vomiting reported. EXTREMITIES: Mild lower extremity edematous changes. No clubbing or cyanosis. NEUROLOGIC: No reported neurological deficits, sensory, or motor. Again, the final diagnosis for the gastric polypoid mass lesion is seen indicative of gastric hyperplastic polyp. IMPRESSION: 1. Gastric polypoid lesion, so far benign by pathology report, removed by partial gastrectomy and gastrojejunostomy. 2. Anemia secondary to above. 3. Peptic ulcer disease. 4. Known history of transient ischemic attack, hypertension with hyperlipidemia. 5. Malnutrition with hyponatremia. 6. Known history of irritable bowel syndrome. 7. Status post tonsillectomy by history. SUGGESTIONS: 1. Continue current management. 2. Enteral hyperalimentation. 3. Advance diet once the patient has bowel movement as per surgical scheduler. Further recommendation to follow. Yamini Batres MD cc: Yamini Batres MD
[2017-06-07] MEDS ORDERED: Potassium Chloride 20 mEq ER Tab PO SCH (17:15)
[2017-06-07] MEDS: Potassium Ch 20mEq in D5-1/2NS 1,000 ML IV SCH (19:00)
[2017-06-08] MEDS: Potassium Ch 20mEq in D5-1/2NS 1,000 ML IV SCH ×2 (04:23→16:00)
[2017-06-08] MEDS: Benzocaine/Menthol (Cepacol) Lozenge MT PRN ×2 (04:26)
--- NOTE | 2017-06-08 05:47 | PN ---
DATE: Continue supportive care. Replace potassium. IV fluids . Juan Pablo Jean MD
--- NOTE | 2017-06-08 09:48 | CP.PCM.PN ---
Subjective - Date & Time of Evaluation Date of Evaluation: 06/08/17 Time of Evaluation: 09:26 - Subjective Subjective: Surgery Progress note. Dr. Montemayor Pt seen and examined at bedside. Family present during evaluation. Patient had an episode of coughing overnight and the NG tube came out. Patient is having large liquid stool output this morning. Tolerating diet. No complaints. No N/V/ D. No CP/SOB. No F/C. Objective - Vital Signs/Intake and Output Vital Signs (last 24 hours): Temp Pulse Resp BP Pulse Ox 98.5 F 77 18 135/85 96 06/08/17 07:50 06/08/17 07:50 06/08/17 07:50 06/08/17 07:50 06/08/17 07:50 Intake and Output: 06/08/17 06/08/17 06:59 18:59 Intake Total 850 Output Total 50 Balance 800 - Medications Medications: Current Medications Benzocaine/Menthol (Cepacol Sore Throat) 1 yohannes MT Q1 PRN PRN Reason: Sore Throat Last Admin: 06/08/17 04:26 Dose: 1 yohannes Dicyclomine HCl (Bentyl) 20 mg PO BID PRN PRN Reason: Irritable bowel symptoms Heparin Sodium (Porcine) (Heparin) 5,000 units SC Q12 [facility] Last Admin: 06/07/17 21:40 Dose: 5,000 units Hydromorphone HCl (Dilaudid) 0.5 mg IVP Q3H PRN PRN Reason: Pain, moderate (4-7) Last Admin: 06/05/17 22:59 Dose: 0.5 mg Potassium Chloride/Dextrose/Sod Cl (Potassium Chl 20 Meq In D5-1/2ns) 1,000 mls @ 100 mls/hr IV .Q10H [facility] Last Admin: 06/08/17 04:23 Dose: 100 mls/hr Pantoprazole Sodium (Protonix Inj) 40 mg IVP DAILY [facility] Last Admin: 06/07/17 10:08 Dose: 40 mg Potassium Chloride (K-Dur 20 Meq Er Tab) 20 meq PO DAILY [facility] Stop: 06/11/17 10:01 Rosuvastatin Calcium (Crestor) 10 mg PO HS [facility] Last Admin: 06/07/17 21:10 Dose: 10 mg - Labs Labs: 06/07/17 11:12 06/07/17 11:12 PT 12.5 SECONDS (9.7-12.2) H 06/04/17 07:15 INR 1.1 06/04/17 07:15 APTT 33 SECONDS (21-34) 06/04/17 07:15 - Constitutional Appears: Well, No Acute Distress - Head Exam Head Exam: ATRAUMATIC, NORMAL INSPECTION, NORMOCEPHALIC - Eye Exam Eye Exam: EOMI - ENT Exam ENT Exam: Mucous Membranes Moist - Neck Exam Neck Exam: Full ROM - Respiratory Exam Respiratory Exam: NORMAL BREATHING PATTERN. absent: Wheezes, Respiratory Distress - Cardiovascular Exam Cardiovascular Exam: absent: JVD - GI/Abdominal Exam GI & Abdominal Exam: Soft. absent: Distended, Firm, Guarding, Rigid, Tenderness - Extremities Exam Extremities Exam: Normal Inspection. absent: Calf Tenderness - Neurological Exam Neurological Exam: Alert, Awake, Oriented x3 - Psychiatric Exam Psychiatric exam: Normal Affect, Normal Mood - Skin Skin Exam: Dry, Intact, Warm Assessment and Plan - Assessment and Plan (Free Text) Assessment: 71yo F with Gastric polyp. S/P Partial Gastrectomy w/ Functional Deborah-En-Y on 06/04/17 - NGT disloged overnight - Encourage Incentive Spirometer - Encourage OOB, Encourage Ambulation. Recc Physical Therapy - Advance diet as tolerated - Continue to monitor bowel fxn - Monitor and replete K as needed Discussed case with Dr. Albina Stone PGY1 surgery pager: [phone]
[2017-06-08] MEDS: Potassium Chloride 20 mEq ER Tab PO SCH (09:59)
[2017-06-08 11:33] LABS: MEAN CORPUSCULAR HEMOGLOBIN 27.8 pg (27.0-31.0); MEAN CORPUSCULAR HGB CONC 32.7 g/dL (33.0-37.0); MEAN PLATELET VOLUME 9.4 fL (7.2-11.7); RED CELL DISTRIBUTION WIDTH 14.7 % (11.5-14.5); WHITE BLOOD COUNT 6.9 K/uL (4.8-10.8)
[2017-06-08 11:46] LABS: ALKALINE PHOSPHATASE 86 U/L (38-126); ALT/SGPT 20 U/L (9-52); AST/SGOT 20 U/L (14-36); BILIRUBIN,TOTAL 0.4 mg/dL (0.2-1.3); BLOOD UREA NITROGEN 4 mg/dL (7-17); CALCIUM 8.3 mg/dl (8.6-10.4); CARBON DIOXIDE 26 mmol/L (22-30); CHLORIDE 99 mmol/L (98-107); GFR AFRICAN-AMERICAN > 60; GLUCOSE,RANDOM 144 mg/dL (65-105); SODIUM 137 mmol/L (132-148); TOTAL PROTEIN 6.3 g/dL (6.3-8.3)
[2017-06-08 20:22] VITALS: RESP 20
[2017-06-09] MEDS: Potassium Ch 20mEq in D5-1/2NS 1,000 ML IV SCH ×2 (01:38→09:20)
[2017-06-09 07:30] LABS: BASO % 0.5 % (0.0-2.0); EOS # 0.1 K/uL (0.0-0.7); EOS % 2.1 % (0.0-4.0); HEMATOCRIT 28.5 % (34.0-47.0); LYMPH # 1.6 K/uL (1.0-4.3); LYMPH % 27.5 % (20.0-40.0); MEAN CORPUSCULAR HEMOGLOBIN 27.9 pg (27.0-31.0); MEAN CORPUSCULAR HGB CONC 32.8 g/dL (33.0-37.0); MEAN PLATELET VOLUME 8.9 fL (7.2-11.7); MONO # 0.6 K/uL (0.0-0.8); MONO % 10.7 % (0.0-10.0); RED CELL DISTRIBUTION WIDTH 14.4 % (11.5-14.5); WHITE BLOOD COUNT 5.7 K/uL (4.8-10.8)
[2017-06-09 08:15] LABS: CHLORIDE 106 mmol/L (98-107); POTASSIUM 3.7 mmol/L (3.6-5.2); SODIUM 139 mmol/L (132-148)
[2017-06-09 08:17] LABS: AST/SGOT 17 U/L (14-36); BILIRUBIN,TOTAL 0.4 mg/dL (0.2-1.3); CARBON DIOXIDE 25 mmol/L (22-30); GFR AFRICAN-AMERICAN > 60
[2017-06-09 08:18] LABS: ALB/GLOB RATIO 0.9 (1.0-2.1); ALKALINE PHOSPHATASE 70 U/L (38-126); ALT/SGPT 20 U/L (9-52); CALCIUM 8.2 mg/dl (8.6-10.4); GLUCOSE,RANDOM 124 mg/dL (65-105)
[2017-06-09 08:20] LABS: BLOOD UREA NITROGEN 2 mg/dL (7-17)
[2017-06-09] MEDS: Potassium Chloride 20 mEq ER Tab PO SCH (09:21)
--- NOTE | 2017-06-09 10:02 | CP.PCM.PN ---
Subjective - Date & Time of Evaluation Date of Evaluation: 06/09/17 Time of Evaluation: 07:20 - Subjective Subjective: PGY2 Resident - Medicine Progress Note Patient seen and examined at bedside. No overnight events per nursing. Patient reports feeling weak. She is tolerating solids and denies pain with food intake. Daughter at bedside. Patient is refusing rehab, and daughter states she will care for her mother at home. Denies fever, chills, chest pain, palpitations , dyspnea, abdominal pain, nausea/vomiting, diarrhea/constipation, or any additional acute complaints. Objective - Vital Signs/Intake and Output Vital Signs (last 24 hours): Temp Pulse Resp BP Pulse Ox 98.9 F 65 20 147/82 97 06/09/17 08:00 06/09/17 08:00 06/09/17 08:00 06/09/17 08:00 06/09/17 08:00 Intake and Output: 06/09/17 06/09/17 06:59 18:59 Intake Total 900 Output Total 40 Balance 860 - Medications Medications: Current Medications Benzocaine/Menthol (Cepacol Sore Throat) 1 yohannes MT Q1 PRN PRN Reason: Sore Throat Last Admin: 06/08/17 04:26 Dose: 1 yohannes Dicyclomine HCl (Bentyl) 20 mg PO BID PRN PRN Reason: Irritable bowel symptoms Potassium Chloride/Dextrose/Sod Cl (Potassium Chl 20 Meq In D5-1/2ns) 1,000 mls @ 100 mls/hr IV .Q10H [facility] Last Admin: 06/09/17 09:20 Dose: 100 mls/hr Pantoprazole Sodium (Protonix Inj) 40 mg IVP DAILY [facility] Last Admin: 06/09/17 09:20 Dose: 40 mg Potassium Chloride (K-Dur 20 Meq Er Tab) 20 meq PO DAILY [facility] Stop: 06/11/17 10:01 Last Admin: 06/09/17 09:21 Dose: 20 meq Rosuvastatin Calcium (Crestor) 10 mg PO HS [facility] Last Admin: 06/08/17 21:16 Dose: 10 mg - Labs Labs: 06/09/17 07:11 06/09/17 07:11 PT 12.5 SECONDS (9.7-12.2) H 06/04/17 07:15 INR 1.1 06/04/17 07:15 APTT 33 SECONDS (21-34) 06/04/17 07:15 - Additional Findings Additional findings: - Constitutional Appears: Well, No Acute Distress - Head Exam Head Exam: ATRAUMATIC, NORMAL INSPECTION, NORMOCEPHALIC - Eye Exam Eye Exam: EOMI - ENT Exam ENT Exam: Mucous Membranes Moist - Neck Exam Neck Exam: Full ROM - Respiratory Exam Respiratory Exam: NORMAL BREATHING PATTERN. absent: Wheezes, Respiratory Distress - Cardiovascular Exam Cardiovascular Exam: absent: JVD - GI/Abdominal Exam GI & Abdominal Exam: Soft. absent: Distended, Firm, Guarding, Rigid, Tenderness midline incision with semaj intact. No erythema or discharge noted. - Extremities Exam Extremities Exam: Normal Inspection. absent: Calf Tenderness - Neurological Exam Neurological Exam: Alert, Awake, Oriented x3 - Psychiatric Exam Psychiatric exam: Normal Affect, Normal Mood - Skin Skin Exam: Dry, Intact, Warm Assessment and Plan - Assessment and Plan (Free Text) Assessment: This is a 71 yo female with pmh of IBS, HTN, HLD, GERD presenting s/p endosocopy 1. Gastric polyp 06/09: Biopsy results benign. s/p gastrectomy with Functional Deborah-En-Y ( performed on 06/04) -GI consulted. recs appreciated -s/p endoscopy -full liquid diet for lunch. advance as tolerated. -biopsy pending -pt will need repeat endo in 10 wks -will order ct scan of abdomen to evaluate for obstruction 2. Hiatal hernia -sx consult. recs appreciated. 3. Hx of HLD -will resume home lipitor 4. hx of HTN -will resume home ramipril 5. Hx of GERD-will resume home omeprazole 6. hx of TIA -will hold home plavix for now 7. hx of IBS -will resume home bentyl as needed 8. GI/DVT ppx -omeprazole daily -SCDs Disposition: Discharge planning. Family refuses rehab. Daughter will care for mother at home - will require home PT and home colostomy care. Case discussed with attending. All medical management as per Dr. Stephen Jean
--- NOTE | 2017-06-09 10:59 | PN ---
DATE: LOCATION: [facility], bed A. SUBJECTIVE: This 71 years old female, post partial gastrectomy, seen and examined in rounds with NG tube is still in place, eject some tube draining with small amount of colored discharge. The entire chart is reviewed including, but not limited to the most recent lab and radiology study results, current and previous medication list, current and previous medical events and latest hemoglobin is still low of 9.8, hematocrit 29.0 with normal platelet count, with low potassium 3.1, low albumin 3.0, low total protein 6.1. No reported bowel movement or passing gas. PHYSICAL EXAMINATION: GENERAL: A 71 years old female. VITAL SIGNS: Afebrile with pulse of 72, respiratory rate 20-22, blood pressure 154/76. HEENT: Shows pale dry oral mucous membranes. Nonicteric sclerae. LUNGS: Scattered crepitations with few rhonchi bilaterally and decreased air entry at bases. HEART: Positive S1 and S2. ABDOMEN: With clean dressing, with very hypoactive bowel sounds and mild distention. No mass or organomegaly. EXTREMITIES: With mild lower extremities edematous changes. No clubbing or cyanosis. NEUROLOGIC: No reported new neurological deficits, sensory or motor. VASCULAR: Peripheral pulses are present, but weak bilaterally. IMPRESSION: 1. Gastric polypoid mass lesion, pathology report is seen, status post partial gastric resection. 2. Anemia, most likely secondary to above. 3. Malnutrition with hypoalbuminemia. 4. Re-exacerbation of peptic ulcer disease. 5. Known history of hypertension, transient ischemic attack with hyperlipidemia. 6. Known history of irritable bowel syndrome. 7. History of status post tonsillectomy. SUGGESTIONS: 1. Agree with your plan. 2. Central hyperalimentation. 3. Flat and upright abdominal x-ray. 4. Case is to be discussed with medical consultant again and plan being the NG tube on and off, 4 hours on and 4 hours off is advised at this point. 5. We will follow up closely with you. The patient will need hematology/oncology consult also. Yamini Batres MD cc: Yamini Batres MD
--- NOTE | 2017-06-09 11:43 | CP.PCM.PN ---
Subjective - Date & Time of Evaluation Date of Evaluation: 06/09/17 Time of Evaluation: 11:41 - Subjective Subjective: General Surgery - Dr. Montemayor Pt S&E. REDDY. Pt is tolerating liquid diet. She states her pain is mild and well controlled. She is passing flatus and had small BM yesterday. She has been OOB and ambulating with assistance. No N/V, F/C, Sob/Cp. Objective - Vital Signs/Intake and Output Vital Signs (last 24 hours): Temp Pulse Resp BP Pulse Ox 98.9 F 65 20 147/82 97 06/09/17 08:00 06/09/17 08:00 06/09/17 08:00 06/09/17 08:00 06/09/17 08:00 Intake and Output: 06/09/17 06/09/17 06:59 18:59 Intake Total 900 Output Total 40 Balance 860 - Medications Medications: Current Medications Benzocaine/Menthol (Cepacol Sore Throat) 1 yohannes MT Q1 PRN PRN Reason: Sore Throat Last Admin: 06/08/17 04:26 Dose: 1 yohannes Dicyclomine HCl (Bentyl) 20 mg PO BID PRN PRN Reason: Irritable bowel symptoms Potassium Chloride/Dextrose/Sod Cl (Potassium Chl 20 Meq In D5-1/2ns) 1,000 mls @ 100 mls/hr IV .Q10H [facility] Last Admin: 06/09/17 09:20 Dose: 100 mls/hr Pantoprazole Sodium (Protonix Inj) 40 mg IVP DAILY [facility] Last Admin: 06/09/17 09:20 Dose: 40 mg Potassium Chloride (K-Dur 20 Meq Er Tab) 20 meq PO DAILY [facility] Stop: 06/11/17 10:01 Last Admin: 06/09/17 09:21 Dose: 20 meq Rosuvastatin Calcium (Crestor) 10 mg PO HS [facility] Last Admin: 06/08/17 21:16 Dose: 10 mg - Labs Labs: 06/09/17 07:11 06/09/17 07:11 PT 12.5 SECONDS (9.7-12.2) H 06/04/17 07:15 INR 1.1 06/04/17 07:15 APTT 33 SECONDS (21-34) 06/04/17 07:15 - Constitutional Appears: No Acute Distress - Head Exam Head Exam: ATRAUMATIC, NORMAL INSPECTION, NORMOCEPHALIC - Eye Exam Eye Exam: Normal appearance - Respiratory Exam Respiratory Exam: NORMAL BREATHING PATTERN. absent: Respiratory Distress - GI/Abdominal Exam GI & Abdominal Exam: Soft. absent: Distended, Guarding, Tenderness, Rebound Additional comments: dressing C/D/I, 60cc serosanguinous drainge from the serjio drain - Neurological Exam Neurological Exam: Alert, Oriented x3 - Psychiatric Exam Psychiatric exam: Normal Affect, Normal Mood - Skin Skin Exam: Dry, Intact Assessment and Plan - Assessment and Plan (Free Text) Assessment: 71 F S/P Partial Gastrectomy w/ Functional Deborah-En-Y, POD #5 - Advance diet as tolerated - Encourage OOB and Ambulation - Physical therapy - DC planning Dw Dr Albina Watson PGY3
--- NOTE | 2017-06-09 19:37 | PN ---
LOCATION: [facility], bed #8. SUBJECTIVE: This is a 71-year-old female seen and examined in rounds without significant clinical changes, but with a complaint of sore throat and intermittent period of abdominal pain with some productive cough on and off. The entire chart is reviewed including but not limited to the most recent lab and radiology study results, current and previous medication list, current and previous medical events and the patient's hemoglobin today is stable 9.3, hematocrit 28.5 with no evidence of active bleeding with blood glucose level 124, calcium low 8.2 with low albumin 2.8, low total protein 6.0. PHYSICAL EXAMINATION: GENERAL: A 71 years old female, seen and examined in rounds. Case discussed at length with the family as is the staff. VITAL SIGNS: Afebrile with pulse of 62, respiratory rate 20-22, blood pressure 140/80. HEENT: Shows pale dry oral mucous membranes. Nonicteric sclerae. LUNGS: She has got crepitations and decrease air entry at bases. HEART: Positive S1 and S2. ABDOMEN: Soft. Bowel sounds are present, but hypoactive. No mass or organomegaly. No rebound tenderness or guarding. Clean abdominal dressing is seen and the patient tolerated liquid intake, was passing gas and small bowel movement late yesterday. EXTREMITIES: Without significant edema, clubbing or cyanosis. NEUROLOGIC: No new reported neurological deficits, sensory or motor. IMPRESSION: 1. Gastric polypoid lesion. 2. Status post partial gastric resection. 3. Anemia, secondary to above. 4. Malnutrition with hypoalbuminemia, gradually improving. 5. Re-exacerbation of peptic ulcer disease. 6. Known history of transient ischemic attack, hypertension with hyperlipidemia. 7. Known history of irritable bowel syndrome. SUGGESTIONS: 1. Continue current management. 2. Advance diet gradually. 3. Further recommendation to follow. Case was discussed at length with the surgical team post surgically. Yamini Batres MD cc: Yamini Batres MD
[2017-06-10 01:21] VITALS: TEMP 98.2
[2017-06-10 08:08] VITALS: BP 128/75; PULSE 63; O2SAT 97
--- NOTE | 2017-06-10 08:30 | CP.PCM.PN ---
Subjective - Date & Time of Evaluation Date of Evaluation: 06/10/17 Time of Evaluation: 08:30 - Subjective Subjective: Patient was seen and examined at bedside. Patient was sitting in bed comfortably and eating. Patient reports feeling well and has no complaints except for a dry cough. 12-point review of systems otherwise negative. Objective - Vital Signs/Intake and Output Vital Signs (last 24 hours): Temp Pulse Resp BP Pulse Ox 98.2 F 63 20 128/75 97 06/10/17 08:04 06/10/17 08:04 06/10/17 08:04 06/10/17 08:04 06/10/17 08:04 Intake and Output: 06/10/17 06/10/17 06:59 18:59 Intake Total 340 Balance 340 - Medications Medications: Current Medications Benzocaine/Menthol (Cepacol Sore Throat) 1 yohannes MT Q1 PRN PRN Reason: Sore Throat Last Admin: 06/08/17 04:26 Dose: 1 yohannes Dicyclomine HCl (Bentyl) 20 mg PO BID PRN PRN Reason: Irritable bowel symptoms Pantoprazole Sodium (Protonix Inj) 40 mg IVP DAILY HERBERT Last Admin: 06/09/17 09:20 Dose: 40 mg Potassium Chloride (K-Dur 20 Meq Er Tab) 20 meq PO DAILY HERBERT Stop: 06/11/17 10:01 Last Admin: 06/09/17 09:21 Dose: 20 meq Rosuvastatin Calcium (Crestor) 10 mg PO HS HERBERT Last Admin: 06/09/17 21:08 Dose: 10 mg - Labs Labs: 06/09/17 07:11 06/09/17 07:11 PT 12.5 SECONDS (9.7-12.2) H 06/04/17 07:15 INR 1.1 06/04/17 07:15 APTT 33 SECONDS (21-34) 06/04/17 07:15 - Head Exam Head Exam: ATRAUMATIC, NORMAL INSPECTION - Eye Exam Eye Exam: EOMI - ENT Exam ENT Exam: Mucous Membranes Moist - Respiratory Exam Respiratory Exam: Clear to Ausculation Bilateral, NORMAL BREATHING PATTERN. absent: Rhonchi, Wheezes - Cardiovascular Exam Cardiovascular Exam: +S1, +S2 - GI/Abdominal Exam GI & Abdominal Exam: absent: Distended, Firm, Tenderness Additional comments: dressing was clean, dry and intact. - Extremities Exam Extremities Exam: absent: Pedal Edema, Tenderness - Neurological Exam Neurological Exam: Alert, Awake, Oriented x3 - Psychiatric Exam Psychiatric exam: Normal Affect, Normal Mood - Skin Skin Exam: Dry, Intact, Warm Assessment and Plan - Assessment and Plan (Free Text) Assessment: 71 year old female s/p partial gastrectomy with functional claudia-en-Y, POD #6. - Patient is clear for discharge. - Continue physical therapy, OOB and ambulation.
[2017-06-10 08:51] LABS: BASO % 0.3 % (0.0-2.0); EOS # 0.1 K/uL (0.0-0.7); EOS % 2.2 % (0.0-4.0); HEMATOCRIT 29.6 % (34.0-47.0); LYMPH # 1.9 K/uL (1.0-4.3); LYMPH % 27.9 % (20.0-40.0); MEAN CELL VOLUME 84.7 fL (81.0-99.0); MEAN CORPUSCULAR HEMOGLOBIN 28.4 pg (27.0-31.0); MEAN CORPUSCULAR HGB CONC 33.5 g/dL (33.0-37.0); MEAN PLATELET VOLUME 8.8 fL (7.2-11.7); MONO # 0.7 K/uL (0.0-0.8); MONO % 10.4 % (0.0-10.0); RED CELL DISTRIBUTION WIDTH 14.2 % (11.5-14.5); WHITE BLOOD COUNT 6.7 K/uL (4.8-10.8)
[2017-06-10 09:06] LABS: CHLORIDE 104 mmol/L (98-107); SODIUM 137 mmol/L (132-148)
[2017-06-10 09:07] LABS: POTASSIUM 3.7 mmol/L (3.6-5.2)
[2017-06-10 09:09] LABS: ALKALINE PHOSPHATASE 80 U/L (38-126); AST/SGOT 18 U/L (14-36); BILIRUBIN,TOTAL 0.4 mg/dL (0.2-1.3); BLOOD UREA NITROGEN 6 mg/dL (7-17); CARBON DIOXIDE 24 mmol/L (22-30); GFR AFRICAN-AMERICAN > 60; GLUCOSE,RANDOM 96 mg/dL (65-105); PHOSPHOROUS 2.6 mg/dL (2.5-4.5); TOTAL PROTEIN 6.3 g/dL (6.3-8.3)
[2017-06-10 09:10] LABS: ALT/SGPT 19 U/L (9-52); CALCIUM 8.5 mg/dl (8.6-10.4); MAGNESIUM 1.9 mg/dL (1.6-2.3)
[2017-06-10] MEDS: Potassium Chloride 20 mEq ER Tab PO SCH (10:15)
--- NOTE | 2017-06-10 10:39 | CP.PCM.PN ---
Subjective - Date & Time of Evaluation Date of Evaluation: 06/10/17 Time of Evaluation: 07:50 - Subjective Subjective: PGY2 Resident - Medicine Progress Note Patient seen and examined at bedside. No overnight events per nursing. Patient reports feeling better today. She is tolerating solids and denies pain with food intake. Patient is still refusing rehab; daughter reported yesterday she will care for her mother at home. Denies fever, chills, chest pain, palpitations , dyspnea, abdominal pain, nausea/vomiting, diarrhea/constipation, or any additional acute complaints. --- Patient is stable for discharge per Dr. Stephen Jean. Patient should resume all medications as outlined in this document. 1. Please make an appointment and follow up with your Primary Doctor Dr. Jean within one week of discharge. 2. Please make an appointment and follow up with your Surgeon, Dr. Montemayor within one week of discharge. He will re-examine your abdomen and remove your semaj. Please keep your abdominal incision clean. Don't scrub your incision. Avoid strenuous activity for 7 to 10 days after your surgery. Don't lift anything heavier than 10 pounds for 2 to 3 weeks after your surgery. Patient should return to ED immediately if symptoms return or worsen. Instructions discussed with patient who understood and agreed. Objective - Vital Signs/Intake and Output Vital Signs (last 24 hours): Temp Pulse Resp BP Pulse Ox 98.2 F 63 20 128/75 97 06/10/17 08:04 06/10/17 08:04 06/10/17 08:04 06/10/17 08:04 06/10/17 08:04 Intake and Output: 06/10/17 06/10/17 06:59 18:59 Intake Total 340 Balance 340 - Medications Medications: Current Medications Benzocaine/Menthol (Cepacol Sore Throat) 1 yohannes MT Q1 PRN PRN Reason: Sore Throat Last Admin: 06/08/17 04:26 Dose: 1 yohannes Dicyclomine HCl (Bentyl) 20 mg PO BID PRN PRN Reason: Irritable bowel symptoms Pantoprazole Sodium (Protonix Inj) 40 mg IVP DAILY HERBERT Last Admin: 06/10/17 10:15 Dose: 40 mg Potassium Chloride (K-Dur 20 Meq Er Tab) 20 meq PO DAILY HERBERT Stop: 06/11/17 10:01 Last Admin: 06/10/17 10:15 Dose: 20 meq Rosuvastatin Calcium (Crestor) 10 mg PO HS HERBERT Last Admin: 06/09/17 21:08 Dose: 10 mg - Labs Labs: 06/10/17 08:23 06/10/17 08:23 PT 12.5 SECONDS (9.7-12.2) H 06/04/17 07:15 INR 1.1 06/04/17 07:15 APTT 33 SECONDS (21-34) 06/04/17 07:15 - Additional Findings Additional findings: - Constitutional Appears: Well, No Acute Distress - Head Exam Head Exam: ATRAUMATIC, NORMAL INSPECTION, NORMOCEPHALIC - Eye Exam Eye Exam: EOMI - ENT Exam ENT Exam: Mucous Membranes Moist - Neck Exam Neck Exam: Full ROM - Respiratory Exam Respiratory Exam: NORMAL BREATHING PATTERN. absent: Wheezes, Respiratory Distress - Cardiovascular Exam Cardiovascular Exam: absent: JVD - GI/Abdominal Exam GI & Abdominal Exam: Soft. absent: Distended, Firm, Guarding, Rigid, Tenderness midline incision with semaj intact. No erythema or discharge noted. - Extremities Exam Extremities Exam: Normal Inspection. absent: Calf Tenderness - Neurological Exam Neurological Exam: Alert, Awake, Oriented x3 - Psychiatric Exam Psychiatric exam: Normal Affect, Normal Mood - Skin Skin Exam: Dry, Intact, Warm Assessment and Plan - Assessment and Plan (Free Text) Assessment: This is a 71 yo female with pmh of IBS, HTN, HLD, GERD presenting s/p endosocopy 1. Gastric polyp 06/10: patient is stable for home discharge. 06/09: Biopsy results benign. s/p gastrectomy with Functional Deborah-En-Y ( performed on 06/04) -GI consulted. recs appreciated -s/p endoscopy -full liquid diet for lunch. advance as tolerated. -biopsy pending -pt will need repeat endo in 10 wks -will order ct scan of abdomen to evaluate for obstruction 2. Hiatal hernia -sx consult. recs appreciated. 3. Hx of HLD -will resume home lipitor 4. hx of HTN -will resume home ramipril 5. Hx of GERD-will resume home omeprazole 6. hx of TIA -will hold home plavix for now 7. hx of IBS -will resume home bentyl as needed 8. GI/DVT ppx -omeprazole daily -SCDs Disposition: Discharge planning. Family refuses rehab. Daughter will care for mother at home. Case discussed with attending. All medical management as per Dr. Stephen Jean
--- NOTE | 2017-06-11 11:29 | PN ---
DATE: LOCATION: [facility], bed A. SUBJECTIVE: This 71-year-old female seen and examined in rounds without significant clinical changes or reported active bleeding, with removed ANA M yesterday with clean abdominal dressing, tolerating oral intake with small bowel movement. The entire chart is reviewed including but not limited to the most recent lab and radiology study results, current and previous medication list, current and previous medical events. PHYSICAL EXAMINATION: GENERAL: A 71-year-old female appeared to be awake, alert and oriented with less complaint of abdominal pain. VITAL SIGNS: Afebrile with pulse of 66, respiratory rate 20-22, blood pressure 136/78. HEENT: Shows pale and dry oral mucous membranes. Nonicteric sclerae. HEART: Positive S1 and S2. LUNGS: Scattered crepitation, decreased air entry at bases. ABDOMEN: Soft with slight distention, covered with clean dressing with slight generalized tenderness. Bowel sounds are hypoactive. No mass or organomegaly. No rebound tenderness or guarding. No reported nausea or vomiting. EXTREMITIES: Mild lower extremity edematous changes. NEUROLOGIC: No new reported neurological deficits, sensory, or motor. LABORATORY DATA: Today's hemoglobin is 9.9, hematocrit 29.6 with low calcium 8.5 and low albumin 3.0. IMPRESSION: 1. Colon polypoid mass lesion with status post partial gastric resection. 2. Anemia, most likely secondary to above. 3. Known history of peptic ulcer disease. 4. Transient ischemic attack, hypertension and hyperlipidemia by history. 5. Malnutrition with hypoalbuminemia, improving gradually. SUGGESTIONS: 1. Agree with your plan. 2. Advance diet gradually. 3. Case history discussed with the surgical consultation for potential discharge to home. Yamini Batres MD cc: Yamini Batres MD
--- NOTE | 2017-06-20 08:43 | DS ---
The patient admitted to the hospital with complaints of weakness, fatigue, and tiredness. The patient needs bedrest, supportive care. The patient showed improvement and discharged to be followed as an outpatient. Juan Pablo Jean MD
== END 2017-06-10 14:12 | disposition home or self-care (01) | DRG 327 ==
LOC: C.ENDO 08:27 → C.9S 12:10 → C.3T 12:58 → OBSVTOIN 06-04 13:28 → C.9I 06-04 14:59 → C.6T 06-06 16:30
PROVIDERS: ADMIT Internal Medicine Pulmonary Disease; ATTEND Internal Medicine Pulmonary Disease
PROC: 3E0G8GC Introduction of Other Therapeutic Substance into Upper GI, Via Natural or Artificial Opening Endoscopic (ICD-10-PCS; 2017-06-03)
PROC: 0DJ08ZZ Inspection of Upper Intestinal Tract, Via Natural or Artificial Opening Endoscopic (ICD-10-PCS; 2017-06-03)
PROC: 0D1A0ZA Bypass Jejunum to Jejunum, Open Approach (ICD-10-PCS; 2017-06-04)
PROC: 0DB60ZZ Excision of Stomach, Open Approach (ICD-10-PCS; principal; 2017-06-04 13:10)
DX: K31.7 Polyp of stomach and duodenum (principal); E46 Unspecified protein-calorie malnutrition; E87.2 Acidosis; D64.9 Anemia, unspecified; E87.1 Hypo-osmolality and hyponatremia; K31.9 Disease of stomach and duodenum, unspecified; E78.00 Pure hypercholesterolemia, unspecified; G89.18 Other acute postprocedural pain; I10 Essential (primary) hypertension; I25.10 Atherosclerotic heart disease of native coronary artery without angina pectoris; K21.9 Gastro-esophageal reflux disease without esophagitis; K27.9 Peptic ulcer, site unspecified, unspecified as acute or chronic, without hemorrhage or perforation; K44.9 Diaphragmatic hernia without obstruction or gangrene; K58.9 Irritable bowel syndrome, unspecified; Z86.73 Personal history of transient ischemic attack (TIA), and cerebral infarction without residual deficits; I25.2 Old myocardial infarction; Z87.891 Personal history of nicotine dependence